=== PATIENT | male | born 2000 | race Caucasian/White ===

== ENCOUNTER 2025-01-14 00:53 | Emergency (ER) | payer MEDICAID, SELFPAY ==
--- NOTE | 2025-01-14 00:48 | ED_ITS ---
HPI - Psych General Chief Complaint: Anxiety Stated Complaint: anxiety crisis, possible panic attack, Autistic Source: patient Mode of arrival: ambulatory Limitations: no limitations History of Present Illness ED Provider: HPI Narrative: patient comes here with delusional thoughts history of anxiety in the past had a panic attack at work not taking any medication mother is concerned patient does not feel anything wrong Related Data Home Medications ?Medication ?Instructions ?Recorded ?Confirmed No Known Home Meds 01/14/25 01/14/25 Allergies Allergy/AdvReac Type Severity Reaction Status Date / Time No Known Allergies Allergy Verified 01/14/25 01:49 Review of Systems 2 Review of Systems: Yes all other systems are reviewed and are negative [facility] Social History Social History Advance Directives: No Advance Directives Information Provided: Yes Do you have a plan to hurt others: No Plan Physical Exam 2 Vital Signs: Vital Signs: Last Vital Signs Temp 97.9 F 01/14/25 01:34 Pulse 67 01/14/25 01:34 Resp 19 01/14/25 01:34 BP 136/60 01/14/25 01:34 Pulse Ox 98 01/14/25 01:34 O2 Del Method Room Air 01/14/25 01:34 BMI result Body Mass Index 23.9 Appearance: Alert. Oriented X3. No acute distress. unkept anxious Eyes: PERRLA, No Nystagmus ENT: Pharynx normal. Oral Mucosa moist Neck: Normal inspection. Neck supple. CVS: Normal heart rate and rhythm. Pulses normal. Respiratory: No respiratory distress. Equal air entry bilateral, no wheezing/rales/rhonchi Abdomen: Soft and nontender. Bowel sounds are present, no mass palpable, no CVA tenderness Skin: Skin warm and dry. Normal skin color. Normal skin turgor. Extremities: No lower extremity edema. No calf tenderness Neuro: Oriented X 3. No motor deficit. No sensory deficit.No cerebellar signs , cranial nerves II-XII intact Medical Decision Making Medical Decision Making [facility] Narrative: patient has acute anxiety refusing any treatment medications family aware seen by care team safe to go home follow up as outpatient Lab Data [facility] Lab Attestation statement: I reviewed the patient's lab results. 01/14/25 02:08 01/14/25 02:07 Labs: Lab Results 01/14/25 01/14/25 01/14/25 Range/Units 02:07 02:08 02:11 WBC 9.8 (4.8-10.8) X10*3/uL RBC 4.93 (4.60-5.80) X10*6/uL Hgb 14.9 (14.0-18.0) g/dl Hct 42.1 (42.0-52.0) % MCV 85.4 (80.0-98.0) fL MCH 30.2 (27.0-33.0) pg MCHC 35.4 (31.0-36.0) g/dl RDW 13.2 (11.0-16.0) % Plt Count 268 (160-400) X10*3/uL MPV 9.4 (9.4-12.4) fL Immature Gran % (Auto) 0.6 H (0.0-0.4) % Neut % (Auto) 79.4 H (45-73) % Lymph % (Auto) 11.1 L (20-40) % [place] % (Auto) 7.7 (2-11) % Eos % (Auto) 0.4 (0-4) % Baso % (Auto) 0.8 (0-2) % Lymph # (Auto) 1.1 L (1.2-4.9) X10*3/uL [place] # (Auto) 0.8 (0.1-1.2) X10*3/uL Eos # (Auto) 0.0 (0.0-0.4) X10*3/uL Baso # (Auto) 0.1 (0.0-0.2) X10*3/uL Abs Immat Gran (auto) 0.06 H (0.00-0.03) X10*3/uL Absolute Neuts (auto) 7.8 (2.0-8.3) x10*3/uL Absolute Nucleated RBC 0.000 (0.0-0.012) X10*3/uL Nucleated RBC % (auto) 0.0 (0.0-0.2) /100WBC Smear Tech's Comments VERIFIED Sodium 140 (135-145) mmol/L Potassium 3.4 (3.3-5.1) mmol/L Chloride 105 (96-108) mmol/L Carbon Dioxide 24 (22-29) mmol/L Anion Gap 14 (12-20) BUN 15 (9-16) mg/dL Creatinine 0.82 (0.5-1.4) mg/dL Estim Creat Clear Calc 155.0 Estimated GFR > 60 Random Glucose 113 (60-115) mg/dL Calcium 9.2 (8.4-10.2) mg/dL Total Bilirubin 0.7 (0.0-1.0) mg/dL AST 78 H (5-37) U/L ALT 75 H (0-40) U/L Alkaline Phosphatase 73 (39-117) U/L Total Protein 7.5 (6.5-8.0) g/dL Albumin 4.3 (3.5-5.0) g/dL Urine Color Urine Appearance Urine pH (5.0-9.0) Ur Specific [place] (1.005-1.025) Urine Protein (Neg-Trace) mg/dL Urine Glucose (UA) (Negative) mg/dL Urine Ketones (Negative) mg/dL Urine Blood (Negative) Urine Nitrite (Negative) Ur Leukocyte Esterase (Negative) Urine RBC (0-2) /HPF Urine WBC (0-5) /HPF Ur Squamous Epith Cells (0-2) /HPF Urine Bacteria (None Seen) Hyaline Casts (0-2) /LPF Salicylates < 5.0 L (15-30) mg/dL Urine Opiates Screen Not Detected (Not Detect) Ur Buprenorphine Scrn Not Detected (Not Detect) ng/mL Ur Oxycodone Screen Not Detected (Not Detect) ng/mL Urine Methadone Screen Not Detected (Not Detect) ng/mL Urine Fentanyl Screen Not Detected (Not Detect) Acetaminophen < 3 (<30) mcg/mL Ur Barbiturates Screen Not Detected (Not Detect) Ur Phencyclidine Scrn Not Detected (Not Detect) Ur Amphetamines Screen Not Detected (Not Detect) U Benzodiazepines Scrn Not Detected (Not Detect) Urine Cocaine Screen Not Detected (Not Detect) U Marijuana (THC) Screen POSITIVE H (Not Detect) Ethyl Alcohol < 10 mg/dL 01/14/25 Range/Units 02:12 WBC (4.8-10.8) X10*3/uL RBC (4.60-5.80) X10*6/uL Hgb (14.0-18.0) g/dl Hct (42.0-52.0) % MCV (80.0-98.0) fL MCH (27.0-33.0) pg MCHC (31.0-36.0) g/dl RDW (11.0-16.0) % Plt Count (160-400) X10*3/uL MPV (9.4-12.4) fL Immature Gran % (Auto) (0.0-0.4) % Neut % (Auto) (45-73) % Lymph % (Auto) (20-40) % [place] % (Auto) (2-11) % Eos % (Auto) (0-4) % Baso % (Auto) (0-2) % Lymph # (Auto) (1.2-4.9) X10*3/uL [place] # (Auto) (0.1-1.2) X10*3/uL Eos # (Auto) (0.0-0.4) X10*3/uL Baso # (Auto) (0.0-0.2) X10*3/uL Abs Immat Gran (auto) (0.00-0.03) X10*3/uL Absolute Neuts (auto) (2.0-8.3) x10*3/uL Absolute Nucleated RBC (0.0-0.012) X10*3/uL Nucleated RBC % (auto) (0.0-0.2) /100WBC Smear Tech's Comments Sodium (135-145) mmol/L Potassium (3.3-5.1) mmol/L Chloride (96-108) mmol/L Carbon Dioxide (22-29) mmol/L Anion Gap (12-20) BUN (9-16) mg/dL Creatinine (0.5-1.4) mg/dL Estim Creat Clear Calc Estimated GFR Random Glucose (60-115) mg/dL Calcium (8.4-10.2) mg/dL Total Bilirubin (0.0-1.0) mg/dL AST (5-37) U/L ALT (0-40) U/L Alkaline Phosphatase (39-117) U/L Total Protein (6.5-8.0) g/dL Albumin (3.5-5.0) g/dL Urine Color Yellow Urine Appearance Clear Urine pH 6.5 (5.0-9.0) Ur Specific [place] >= 1.030 H (1.005-1.025) Urine Protein 30 (1+) H (Neg-Trace) mg/dL Urine Glucose (UA) Negative (Negative) mg/dL Urine Ketones 15 (Negative) mg/dL Urine Blood Negative (Negative) Urine Nitrite Negative (Negative) Ur Leukocyte Esterase Negative (Negative) Urine RBC 0-2 (0-2) /HPF Urine WBC 0-5 (0-5) /HPF Ur Squamous Epith Cells 0-2 (0-2) /HPF Urine Bacteria None Seen (None Seen) Hyaline Casts 0-2 (0-2) /LPF Salicylates (15-30) mg/dL Urine Opiates Screen (Not Detect) Ur Buprenorphine Scrn (Not Detect) ng/mL Ur Oxycodone Screen (Not Detect) ng/mL Urine Methadone Screen (Not Detect) ng/mL Urine Fentanyl Screen (Not Detect) Acetaminophen (<30) mcg/mL Ur Barbiturates Screen (Not Detect) Ur Phencyclidine Scrn (Not Detect) Ur Amphetamines Screen (Not Detect) U Benzodiazepines Scrn (Not Detect) Urine Cocaine Screen (Not Detect) U Marijuana (THC) Screen (Not Detect) Ethyl Alcohol mg/dL Discharge Plan Discharge Clinical Impression: Acute anxiety, Panic disorder Patient Disposition: Home, Self-Care Instructions: Panic Disorder (ED), Anxiety (ED) Additional Instructions: follow up with psychiatrist as advised Prescriptions: No Action No Known Home Meds Referrals: El Castillo MD [Physician] - 1 week Print Language: Monegasque
--- OUTSIDE RECORDS SUMMARY | 2025-01-14 01:06 | XMS_ITS ---
Author Name [facility] Organization Unknown Care Team Organization Name Specialty Phone Email Start Date End Da te [employer] 06/12/2023 0 04/26/2024
--- OUTSIDE RECORDS SUMMARY | 2025-01-14 01:06 | XMS_ITS | Clinical Summary ---
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 Name Role Phone Unavailable Primary Care Provider Unavailabl e Allergies No known active allergies Medications amphetamine-dext roamphetamine XR 5 MG 24 hr capsule TK 1 C PO D 0 02/23/2018 Active buPROPion XL 150 MG 24 hr tablet 03/16/2018 Act yolis lamoTRIgine 5 MG chewable tablet chewable tablet CHEW 2 TS PO QD 0 02/23/2018 Active Active Problems Problem Noted Date Diagnosed Date Anxiety 03/10/2017 Autistic disorder 03/10/2017 Pectus excavatum 03/10/2017 Seasonal allergic rhinitis 03/10/2017 Febrile seizure 08/08/2011 Amblyopia 12/27/2010 ADHD (attention deficit hyperactivity disorder) 10/31/2009 Immunizations Immunization Administration Dates Next Due DTaP 5 05/26/2007, 5,06/15/2003,04/13,02/09/2003 H1N1 10/31/2009 HPV Vaccine 9 Valent 03/10/2017 Hep A, ped/adol 03/10/2017,05/11/2014 Hep B, ped/adol 10/12/2003,06/15/2003,2002 Hib (HbOC) 05/02/2004 Hib (PRP-T) 06/15/2003,04/13/2003,02/09/2003 IPV 05/26/2007, 4,04/13/2003,02/09 Influenza, injectable, quadr ivalent, preservative free 05/11/2014 Influenza, injectable, trivalent 06/08/2009,06/08,05/26/2007 MMR 12/15/2003 MMRV 05/26/2007 Meningococcal Conj (Menactra) MCV4P 05/11/2014 Pneumococcal Conjugate 06/15/2003,04/13/2003,12/2002 Tdap 05/11/2014 Varicella 12/15/2003 Family History Relation Name Status Comments Father Father: Pulmona ry embolism, Gout Maternal Grandfather Materna l grandfather: COPD, Diabetes mellitus Maternal Grandmother Materna l grandmother: Depression, bipolar depression, nervous b Mother Mother: Allergi c rhinitis, Seizure disorder, Endometriosis Other 1 Family history of SEIZURE, Family history of FACTOR 5 Other 2 Family history of SEIZURE, Family history of FACTOR 5 Paternal Grandmother Paterna l grandmother: Gout Social History Tobacco Use Types Packs/Day Years Used Date Smoking Tobacco: Never Smokeless Tobacco: Never Comments:Never smoker Sex and Gender Information Value Date Recorded Sex Assigned at Not on file Legal Sex Male 4:57 PM EDT Gender Identity Not on file Sexual Orientation Not on file Last Filed Vital Signs Vital Sign Reading Time Taken Comments Blood Pressure 108/70 03/17/2018 10:04 AM EDT Pulse 74 03/17/2018 10:04 AM EDT Temperature 36.6 ??C (97.8 ??F) 03/17/2018 1 0:04 AM EDT Respiratory Rate - - Oxygen Saturation - - Inhaled Oxygen Concentration - - Weight 77.5 kg (170 lb 12.8 oz) 018 10:04 AM EDT Height 181 cm (5' 11.25 ) 03/17/2018 10 :04 AM EDT Body Mass Index 23.65 03/17/2018 10:04 AM EDT Plan of Treatment Health Maintenance Due Date Last Done Comments HPV Vaccines (2 - Male 2-dose series) 09/10/2017 03/10/2017 Men B Vaccine (1 of 2 - Standard) 2018 Influenza Vaccines (#1) 2024 05/11/20 14, 06/08/2009, 06/22/2008, Additional history exists COVID-19 Vaccine ( - season) 2024 DTaP,Tdap,and Td Vaccines (7 - Td or Tdap) 05/11/2024 05/11/2014, 05/26/2007, 01/09/2005, Additional history exists Pneumococcal Vaccine Aged Out 06/15/2003, 04/13/2003, 02/09/2003 No longer eligible based on patient's age to complete this topic Hepatitis B Vaccines Completed 10/12/2003, 06/15/2003, 2002 HIB Vaccines Completed 05/02/2004, 04/2003, 04/13/2003, Additional history exists IPV Vaccines Completed 05/26/2007, 12/2003, 04/13/2003, Additional history exists MMR Vaccines Completed 05/26/2007, 12/15/2003 Varicella Vaccines Completed 05/26/2007, 12/15/2003 Meningococcal Vaccine Aged Out 05/11/2014 No kim sheryl eligible based on patient's age to complete this topic Hepatitis A Vaccines Completed 03/10/2017, 05/11/20 14
--- OUTSIDE RECORDS SUMMARY | 2025-01-14 01:06 | XMS_ITS | Encounter Summary ---
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 Role Phone Unavailable Primary Care Provider Unavailabl e Encounter Details Date Type Department Care Team (Late st Contact Info) Description 04/24/2017 Conversion Encounter [facility] - [address] [id number] Social History Tobacco Use Types Packs/Day Years Used Date Smoking Tobacco: Never Comments:Never smoker Sex and Gender Information Value Date Recorded Sex Assigned at Not on file Legal Sex Male 4:57 PM EDT Gender Identity Not on file Sexual Orientation Not on file documented as of this encounter Plan of Treatment Not on file documented as of this encounter Visit Diagnoses Not on filedocumented in this encounter
--- OUTSIDE RECORDS SUMMARY | 2025-01-14 01:07 | XMS_ITS | Data Portability ---
Author Organization [facility], [address] Address [address] [place] [address] Assessment No assessment recorded. Plan of Treatment Reminders Order Date Submit Date Provider Last Modified By Organization Details Last Modified Time Details Appointments None recorded. Lab rapid SARS CoV 2 Ag, QL IA, respiratory specimen 2022 023 [address], [address] [place] [address], [address], 3 12:01:55 rapid flu (A+B) 2022 023 [facility] _[facility], [address] [place] [address], [address], 3 12:01:54 rapid SARS CoV 2 Ag, QL IA, respiratory specimen 2022 023 [facility] [address], [address] [place] [address], [address], 3 17:49:29 Referral None recorded. Procedures None recorded. Surgeries None recorded. Imaging None recorded. Medication Orders prednisone 20 mg tablet 2022 023 [facility]/Pharmacy #[id number], [address] [facility] [place], [address], 3 12:01:58 fexofenadin e-pseudoeph edrine ER 180 mg-240 mg tablet,ext. release 24 hr 2022 023 [id number], [address] [place], [address], 3 12:01:58 ondansetron 8 mg disintegrat ing tablet 2022 023 [id number] [address] [place], [address], 3 12:01:58 prednisone 20 mg tablet 2022 023 [facility] [address] [place], [address], 3 11:18:35 albuterol sulfate HFA 90 mcg/actuati on aerosol inhaler 2022 023 [facility] [address] [place], [address], 3 11:18:29 benzonatate 200 mg capsule 2022 023 [facility] [address] [place], [address], 3 11:18:32 Allergy Relief (fluticason e) 50 mcg/actuati on nasal spray,suspe nsion 2022 023 [facility] [address] [place], [address], 3 11:18:27 Patient TargetsNo targets recorded. Patient Instructions Encounter Date Encounter Id Patient Instructions Last Modified By Organization Details Last Modified Time 10/19/2022 [id number] Patient instruct ed on worsening signs and symptoms that would require further evaluation by ED or PCP such as fever of 101.0 or greater, congestion accompanied with coughing, vomiting, diarrhea, abdominal pain, decreased oral intake, lethargy, or other new symptom(s) experienced not discussed during this visit. Use humidifier and ensure good hydration. If you experience new concerning symptoms, shortness of breath, respiratory distress, or chest pain go to the ER. Use the medications prescribed. May use Decongestants if tolerated and no history of elevated blood pressure or Diabetes. Use saline nasal saline and Flonase daily for1 week. You may use tylenol for pain/fever. Do not take prednisone with Ibuprofen. Get some extra rest. When should you call for help? Call anytime you think you may need emergency care. For example, call if: You have severe trouble breathing. Call your doctor now or seek immediate medical care if: You have new or worse trouble breathing. You cough up dark brown or bloody mucus (sputum). You have a new or higher fever. You have a new rash. Watch closely for changes in your health, and be sure to contact your doctor if: You cough more deeply or more often, especially if you notice more mucus or a change in the color of your mucus. You are not getting better as expected. [email or web address] Not available 10/19/2022 17:49:27 11/03/2022 [id number] nausea and vomiting: care instructions [email or web address] Not available 11/03/2022 12:01:54 Try small amount s of clear liquids frequently. If vomiting occurs, wait 30-60 minutes before trying clear liquids again. Once you are able to tolerate clear liquids for at least 6 hours without vomiting, you can advance to a soft diet consisting of foods such as bananas, rice, applesauce, toast, crackers, and other foods rich in carbohydrates and low on fats and spices. If the diet is tolerated for 12-24 hours, you can slowly add other foods to your diet. If vomiting occurs, you should go back to clear liquids only and work your way back to a normal diet as outlined above. If much worse, you should seek treatment immediately. Not available 11/03/2022 11:15:13 Sinusitis is an infection of the lining of the sinus cavities in your head. Sinusitis often follows a cold. It causes pain and pressure in your head and face. In most cases, sinusitis gets better on its own in 1 to 2 weeks. But some mild symptoms may last for several weeks. Sometimes antibiotics are needed. if you are having problems. It's also a good idea to know your test results and keep a list of the medicines you take. How can you care for yourself at home? Take an ckoy-nom-ffqtagi pain medicine. Avoid Ibuprofen, Aleve and Aspirin if . If the doctor prescribed antibiotics, take them as directed. Do not stop taking them just because you feel better. You need to take the full course of antibiotics. Be careful when taking gvrc-emi-yxofgyc cold or influenza (flu) medicines and Tylenol at the same time. Many of these medicines have acetaminophen, which is Tylenol. Read the labels to make sure that you are not taking more than the recommended dose. Too much acetaminophen (Tylenol) can be harmful. Breathe warm, moist air from a steamy shower, a hot bath, or a sink filled with hot water. Avoid cold, dry air. Using a humidifier in your home may help. Follow the directions for cleaning the machine. Use saline (saltwater) nasal washes. This can help keep your nasal passages open and wash out mucus and bacteria. You can buy saline nose drops at a grocery store or drugstore. Or you can make your own at home by adding 1 teaspoon (5 millilitres) of salt and 1 teaspoon (5 millilitres) of baking soda to 2 cups (500 mL) of distilled water. If you make your own, fill a bulb syringe with the solution, insert the tip into your nostril, and squeeze gently. Blow your nose. Put a hot, wet towel or a warm gel pack on your face 3 or 4 times a day for 5 to 10 minutes each time. Try a decongestant nasal spray like oxymetazoline (Drixoral). Do not use it for more than 3 days in a row. Using it for more than 3 days can make your congestion worse. [email or web address] Not available 11/03/2022 12:02:09 Reason for Referral None Reported. Results Created Date Observation Date Name Description Value Unit Range Abnormal Flag Note LastModifiedBy Organization Detail LastModifiedTime 10/19/19 23 10/19/2022 rapid SARS CoV 2 Ag, QL IA, respi rator y speci men Unknown Analyte Normal =Negat yolis Not Available [address] [place] [address], [place], [address], 10/19/2022 17:24:20 10/19/19 23 10/19/2022 rapid SARS CoV 2 Ag, QL IA, respi rator y speci men Unknown Analyte negati ve Not Available tin [address], [place], [address], 10/19/2022 17:24:20 11/03/19 23 11/03/2022 rapid SARS CoV 2 Ag, QL IA, respi rator y speci men Unknown Analyte Normal =Negat yolis Not Available [address], [place], [address], 11/03/2022 11:19:57 11/03/19 23 11/03/2022 rapid SARS CoV 2 Ag, QL IA, respi rator y speci men Unknown Analyte negati ve Not Available [address], [place], [address], 11/03/2022 11:19:57 11/03/19 23 11/03/2022 rapid flu (A+B) Unknown Analyte Normal = Negati ve Not Available [address], [place], [place], [address], 11/03/2022 11:19:49 11/03/19 23 11/03/2022 rapid flu (A+B) Unknown Analyte Normal = Negati ve Not Available [address] [place] [address], [place], [address], 11/03/2022 11:19:49 11/03/19 23 11/03/2022 rapid flu (A+B) Unknown Analyte negati ve Not Available [address], [place], [address], 11/03/2022 11:19:49 11/03/19 23 11/03/2022 rapid flu (A+B) Unknown Analyte negati ve Not Available [address] [place], [address], 11/03/2022 11:19:49 Result Notes None recorded. Problems No Known Problems Medical Equipment None Reported. Allergies No known drug allergies Medications Name Sig Start Date Stop Date Status Note LastModified by Organization Details LastModified Time prednisone 20 mg tablet Take 2 tablets every day by oral route in the morning for 3 days. 2022 active Not Available Not Available Not Avai lable ondansetron 8 mg disintegrat ing tablet Place 1 tablet 3 times a day by transling ual route as needed for 3 days. 2022 active Not Available Not Available Not Avai lable albuterol sulfate HFA 90 mcg/actuati on aerosol inhaler Inhale 2 puffs every 4-6 hours by inhalatio n route as directed for 10 days. 11/03 completed Not Available Not Available Not Available fexofenadin e-pseudoeph edrine ER 180 mg-240 mg tablet,ext. release 24 hr Take 1 tablet every day by oral route in the morning for 10 days. 2022 active Not Available Not Available Not Avai lable Vitals Date Recorded Body height Body mass index (BMI) [Percentile] Per age and sex Body mass index (BMI) Body weight Pain severity - 0-10 verbal numeric rating [Score] - Reported Oxygen saturation Oxygen saturation in Arterial blood by Pulse oximetry Heart rate Respiratory rate Body temperature Systolic blood pressure Diastolic blood pressure Provider Name and Address Organization Details Last Updated DateTime 3 187.96 cm 95 % 30.8 kg/m2 754593. 17 g 5 98 % 98 % 87 /min 20 /min 98.1 [degF] 124 mm[Hg] 78 mm[Hg] JENIFFER GILLESPIE - [facility] 3 17:20:19 Date Recorded Body height Body mass index (BMI) [Percentile] Per age and sex Body mass index (BMI) Body weight Pain severity - 0-10 verbal numeric rating [Score] - Reported Oxygen saturation Oxygen saturation in Arterial blood by Pulse oximetry Heart rate Respiratory rate Body temperature Systolic blood pressure Diastolic blood pressure Provider Name and Address Organization Details Last Updated DateTime 3 187.96 cm 96 % 31.5 kg/m2 872737. 13 g 0 97 % 97 % 81 /min 16 /min 98 [degF] 123 mm[Hg] 63 mm[Hg] ROHINI MITCHELL PA - [facility] 11:21:36 Social History Question Answer Notes LastModified by Organizat ion Details LastModified Time Tobacco Smoking Status Never Smoker JENIFFER ANDERSON sultana PA Amanda [facility] 10/19/2022 17:24:12 What Is Your Level Of Alcohol Consumption? None [email or web address] Information not available 10/19/2022 Are You Currently Employed? Yes Information not available 11/03/2022 Do You Use Any Illicit Or Recreational Drugs? No [email or web address] Information not available 10/19/2022 Have You Recently Traveled Abroad? No [email or web address] Information not available 10/19/2022 Are You Currently In School? Yes Information not available 11/03/2022 Do You Or Have You Ever Used Any Other Forms Of Tobacco Or Nicotine? No [email or web address] Information not available 10/19/2022 Sex: Unknown Functional Status None recorded. Mental Status None recorded. Family History Relationship Description Onset Age of this Age Resolved Age Notes LastModified by Organization Details LastModified Time Father No current problems or disability [email or web address] Not available 10/19 17:23:32 Mother No current problems or disability [email or web address] Not available 10/19 17:23:32 Medical History No medical history recorded. Immunizations Vaccine Type Date Status Note Provider Nam e and Address Organization Details Recorded Time HPV9 09/13/2022 completed ROHINI weinberg PA - [facility] 11/03/2022 11:17:57 HPV9 03/10/2017 completed ROHINI weinberg PA - [facility] 11/03/2022 11:17:57 Hep A, ped/adol, 2 dose 03/10/2017 completed ROHINI weinberg PA - [facility] 11/03/2022 11:17:57 Past Encounters Encounter ID Performer Location Encounter Start Date Encounter Closed Date Diagnosis/Indication Diagnosis SNOMED-CT Code Diagnosis ICD10 Code Diagnosis Note [id number] [facility] [address] 10/19/2019 18:33:02 10/19/2019 19:50:49 [id number] Jared Slaughter NP [address] [facility] [place] [address] 10/19/2022 17:12:20 10/19/2022 17:51:52 Acute bronchitis 21009979 J20.9 Exposure t o SARS-CoV-2 694168423 Z20.822 [id number] Jared Slaughter NP [address] [facility] [place] [address] 11/03/2022 10:01:53 11/03/2022 12:03:42 Exposure to SARS-CoV-2 585756167 Z20.822 Nausea, vo miting and diarrhea 0724196 R11.2 Acute sinusitis 91933347 J01.90 Health Concerns Section Related Observation LastModified by Organization Detai ls LastModified Time None Recorded Concern Status LastModified by Organization Details LastModified Time None Recorded Advance Directives Directive None Recorded Payers Insurance Date Sequence Insurance Name Policy Number Policy Ballesteros Covered Member ID Ballesteros Member ID Guarantor Name 11/03/2022 1 [facility] (MEDICAID HMO) [id number] Chandler Stark [id number] Poly Stark Notes Date Note Type Note Provider Name and Address Organization Details Recorded Time 10/19/2022 text/html CongestionReport ed bypatient.Notes:chest congestion, nasal congestion with post nasal drip x 3 days. denies any fever or fever with chills. no SOB or respiratory distress. POX= 98 %Ear Pain Brief HPIReported bypatient.Quality:no itching; no discharge from the ears; no burning Severity:no fever; able to perform daily activities; no interference with sleep Context:no recent URI; no recent trauma; no recent ear infection; no recent swimming; no immunocompromise; no dental problems; no recent airplane travel; no scuba diving; non-smoker Associated Symptoms:no cough; no jaw popping or clicking; No decreased appetite; no discharge from ear; no nasal congestion; no nasal discharge; no hearing loss; no sense of fullness; no sore throat; no dental pain; no jaw pain; no tinnitus; no decreased hearing; no muffled hearing Jared Slaughter NP [address] [place] [place], [address], [facility] 10/24/2022 08:41:07 11/03/2022 text/html Nausea UCReporte d bypatient.source of patient informationpatient; Patient arrived at Urgent Care ambulatory Locationdiffuse Quality:worsening; intermittent Severity:moderate Durationcannot identify Onset/Timing:abrupt onset; still present;worse in the morning Contextno drug/alcohol abuse; no one else with similar symptoms; no recent camping; no recent picnic; no possible food sources; no well water; no foreign travel Alleviating factors:Pepto-Bismol Aggravating factors:eating Associated Symptoms:no abdominal pain; no excess gas; no fever; no cholesterol issues; no diarrhea; no vomiting; no dry heaves; no heartburn; no fatigue; no weakness; no weight loss; no weight gain; no muscle aches; no muscle weakness; no nutrient deficiency; no change in bowel/bladder habits Jared Slaughter NP [address] [place] [place], [address], [facility] 11/03/2022 12:02:36
[2025-01-14 01:34] VITALS: BP 110/70; BP 136/60; PULSE 54; PULSE 67; RESP 19; TEMP 36.6; O2SAT 98; O2SAT 99; BMI 23.9
[2025-01-14 02:21] LABS: Appearance Urine Clear; Color Urine Yellow; Glucose Urine UA Negative (Negative); Leukocyte Esterase Urine Negative (Negative); Nitrite Urine Negative (Negative); PH 6.5 (5.0-9.0); Specific Gravity - Urine >= 1.030 (1.005-1.025); UMIC TRIGGER UA YES; Urine Blood Negative (Negative); Urine Ketones 15 mg/dL (Negative); Urine Protein 30 (1+) mg/dL (Neg-Trace)
[2025-01-14 02:23] LABS: Eosinophils Percent Auto 0.4 % (0-4); Imm Gran Abs Auto 0.06 X10*3/uL (0.00-0.03); Imm Gran Pct Auto 0.6 % (0.0-0.4); MANUAL DIFF FLAG SCAN; PLT CLUMP 1; Red Cell Distribution Width 13.2 % (11.0-16.0); SCAN SMEAR FLAG 1
[2025-01-14 02:25] LABS: Basophils Absolute Auto 0.1 X10*3/uL (0.0-0.2); Basophils Percent Auto 0.8 % (0-2); Hematocrit 42.1 % (42.0-52.0); Hemoglobin 14.9 g/dl (14.0-18.0); Lymphocytes Absolute Auto 1.1 X10*3/uL (1.2-4.9); Lymphocytes Percent Auto 11.1 % (20-40); Mean Corpuscular HGB Conc 35.4 g/dl (31.0-36.0); Mean Corpuscular Hemoglobin 30.2 pg (27.0-33.0); Mean Corpuscular Volume 85.4 fL (80.0-98.0); Mean Platelet Volume 9.4 fL (9.4-12.4); Monocytes Absolute Auto 0.8 X10*3/uL (0.1-1.2); Monocytes Percent Auto 7.7 % (2-11); Neutrophils Absolute Auto 7.8 x10*3/uL (2.0-8.3); Neutrophils Percent Auto 79.4 % (45-73); Red Blood Count 4.93 X10*6/uL (4.60-5.80)
[2025-01-14 02:26] LABS: White Blood Count 9.8 X10*3/uL (4.8-10.8)
[2025-01-14 02:27] LABS: Platelet Count 268 X10*3/uL (160-400)
[2025-01-14 02:32] LABS: Bacteria Urine None Seen (None Seen); Hyaline Casts Urine 0-2 /LPF (0-2); RBC Urine 0-2 /HPF (0-2); Squamous Epithelial Cell Urine 0-2 /HPF (0-2); WBC Urine 0-5 /HPF (0-5)
[2025-01-14 02:44] LABS: Amphetamine Screen Urine Not Detected (Not Detect); Barbiturates, Urine Not Detected (Not Detect); Benzodiazepines Screen Urine Not Detected (Not Detect); Buprenorphine Scr Not Detected (Not Detect); Cannabinoid Screen Urine POSITIVE (Not Detect); Cocaine Screen Urine Not Detected (Not Detect); Fentanyl, urine Not Detected (Not Detect); Methadone Screen, Urine Not Detected (Not Detect); Opiate Screen Urine Not Detected (Not Detect); Oxycodone Screen Urine Not Detected (Not Detect); Phencyclidine Screen Urine Not Detected (Not Detect)
[2025-01-14 02:47] LABS: Alanine Aminotransferase 75 U/L (0-40); Albumin Level 4.3 g/dL (3.5-5.0); Anion Gap 14 (12-20); Aspartate Amino Transferase 78 U/L (5-37); Bilirubin Total 0.7 mg/dL (0.0-1.0); Blood Urea Nitrogen 15 mg/dL (9-16); Calcium 9.2 mg/dL (8.4-10.2); Carbon Dioxide 24 mmol/L (22-29); Chloride 105 mmol/L (96-108); Estimated Glomerular Filt Rate > 60; Ethanol < 10 mg/dL; Glucose Random 113 mg/dL (60-115); Potassium 3.4 mmol/L (3.3-5.1); Sodium 140 mmol/L (135-145); Total Protein 7.5 g/dL (6.5-8.0)
[2025-01-14 02:50] LABS: SLIDE REVIEW VERIFIED
[2025-01-14 02:59] LABS: Alkaline Phosphatase 73 U/L (39-117)
[2025-01-14 03:18] LABS: Acetaminophen LAB < 3 mcg/mL (<30); Salicylate < 5.0 mg/dL (15-30)
--- NOTE | 2025-01-14 05:14 | PC.NURSE ---
five minutes after care staff Liyah had come and talked to client, client claims he forgot agreeing to try and stay and get help for recent challenges at home. when t/w tried to summarize about the phone call to collaterals, client expressed that perhaps the peer almas was trying to protect me and not that client and almas peer have a professional relationship. patient seemed to want to recant agrrement to stay i dont want to be held against my will b/c patient was seeming to escalate in volume, t/w told client i would try and have her return and also nothing was going to happen in the next few hours, that his mother was going to call his job and he should try and get rest.
--- NOTE | 2025-01-14 05:26 | PC.NURSE ---
client came out to ask for an uber, t/w told him the clinician would return and discuss with him, and that the previous interaction was the opposite of what he had just presented, and therefore the clinician would come and represnet information to provider again.
[2025-01-14 06:21] VITALS: BP 120/66; PULSE 55; RESP 18; TEMP 37; O2SAT 98
== END 2025-01-14 06:38 | disposition home or self-care (01) ==
PROVIDERS: Emergency Provider Internal Medicine
DX: F41.9 Anxiety disorder, unspecified (principal); F41.0 Panic disorder [episodic paroxysmal anxiety]; F22 Delusional disorders
CPT/HCPCS: 36415; 80053; 80143; 80179; 80307; 81001; 85025; 99284; S9485

== ENCOUNTER 2025-01-16 04:53 | Inpatient (IN) | payer MEDICAID, SELFPAY ==
--- OUTSIDE RECORDS SUMMARY | 2025-01-16 05:00 | XMS_ITS | Encounter Summary ---
Author Organization [facility] Address [address] [place] [address] Phone Care Team Providers Care Convention Services Manager Name Role Phone Unavailable Primary Care Provider Unavailabl e Encounter Details Date Type Department Care Team (Late st Contact Info) Description 04/24/2017 Conversion Encounter [facility] - [address] [address] Social History Tobacco Use Types Packs/Day Years [...]
--- OUTSIDE RECORDS SUMMARY | 2025-01-16 05:00 | XMS_ITS | Clinical Summary ---
Author Organization [facility] Address [address] [place] [address] Phone Care Team Providers Care Oven Attendant Name Role Phone Unavailable Primary Care Provider [...]
--- OUTSIDE RECORDS SUMMARY | 2025-01-16 05:00 | XMS_ITS | Data Portability ---
Author Organization [facility], [address] Address [address] [place] [address] Assessment No assessment recorded. Plan of Treatment Reminders Order Date Submit Date Provider Last Modified By Organization Details Last Modified Time Details Appointments None recorded. Lab rapid SARS CoV 2 Ag, QL IA, respiratory specimen 2022 023 gretaHaley 20995_[facility], [address] [place] [address], [address], 3 12:01:55 rapid flu (A+B) 2022 023 [facility] _[facility], [address] [place] [address], [address], 3 12:01:54 rapid SARS CoV 2 Ag, QL IA, respiratory specimen 2022 023 [facility] 2099[facility], [address] [place] [address], [address], 3 17:49:29 Referral None recorded. Procedures None recorded. Surgeries None recorded. Imaging None recorded. Medication Orders prednisone 20 mg tablet 2022 023 [facility]/Pharmacy #[id number], [address] [facility] [place], [address], 3 12:01:58 fexofenadin e-pseudoeph edrine ER 180 mg-240 mg tablet,ext. release 24 hr 2022 023 [facility], [address] [place], [address], 3 12:01:58 ondansetron 8 mg disintegrat ing tablet 2022 023 [facility] [address] [place], [address], 3 12:01:58 prednisone 20 mg tablet 2022 023 [facility] [address] [place], [address], 3 11:18:35 albuterol sulfate HFA 90 mcg/actuati on aerosol inhaler 2022 023 [facility] [address] [place], [address], 3 11:18:29 benzonatate 200 mg capsule 2022 023 [facility] [address] [place], [address], 3 11:18:32 Allergy Relief (fluticason e) 50 mcg/actuati on nasal spray,suspe nsion 2022 023 [facility] [address] [place], [address], 3 11:18:27 Patient TargetsNo targets recorded. Patient Instructions Encounter Date Encounter Id Patient Instructions Last Modified By Organization Details Last Modified Time 10/19/2022 [id number] Patient instruct ed on worsening signs and [...] expected. [email or web address] Not available 10/19/2022 17:49:27 11/03/2022 [id number] nausea and vomiting: care instructions [email or web address] Not [...] care for yourself at home? Take an rhaq-zvz-bnqpoyw pain medicine. Avoid Ibuprofen, Aleve and Aspirin if . If the doctor prescribed antibiotics, take them as directed. Do not stop taking them just because you feel better. You need to take the full course of antibiotics. Be careful when taking srla-wje-hptcezy cold or influenza (flu) medicines and Tylenol [...] =Negat yolis Not Available [address] [address] [address] [place] [address], [place], [address], 10/19/2022 17:24:20 10/19/19 23 10/19/2022 rapid SARS CoV 2 Ag, QL IA, respi rator y speci men Unknown Analyte negati ve Not Available tin [address], [place], [address], 10/19/2022 17:24:20 11/03/19 23 11/03/2022 rapid SARS CoV 2 Ag, QL IA, respi rator y speci men Unknown Analyte Normal =Negat yolis Not Available [address], [place], [address], 11/03/2022 11:19:57 11/03/19 23 11/03/2022 rapid SARS CoV 2 Ag, QL IA, respi rator y speci men Unknown Analyte negati ve Not Available [address], [place], [address], 11/03/2022 11:19:57 11/03/19 23 11/03/2022 rapid flu (A+B) Unknown Analyte Normal = Negati ve Not Available [address], [place], [place], [address], 11/03/2022 11:19:49 11/03/19 23 11/03/2022 rapid flu (A+B) Unknown Analyte Normal = Negati ve Not Available [address] [place] [address], [place], [address], 11/03/2022 11:19:49 11/03/19 23 11/03/2022 rapid flu (A+B) Unknown Analyte negati ve Not Available [address], [place], [address], 11/03/2022 11:19:49 11/03/19 23 11/03/2022 rapid flu (A+B) Unknown Analyte negati ve Not Available [address] [place], [address], 11/03/2022 11:19:49 Result Notes None recorded. Problems [...] 3 187.96 cm 95 % 30.8 kg/m2 207960. 17 g 5 98 % 98 % [...] 3 187.96 cm 96 % 31.5 kg/m2 158916. 13 g 0 97 % 97 % 81 /min 16 /min 98 [degF] 123 mm[Hg] 63 mm[Hg] ROHINI MITCHELL PA - [facility] 11:21:36 Social History Question Answer Notes LastModified by Organizat ion Details LastModified Time Tobacco Smoking Status Never Smoker JENIFFER ANDERSON sultana PA Amanda [facility] 10/19/2022 17:24:12 What Is Your Level Of Alcohol Consumption? None [email or web address] Information not available 10/19/2022 Are You Currently Employed? Yes Information not available 11/03/2022 Do You Use Any Illicit Or Recreational Drugs? No [email or web address] Information not available 10/19/2022 Have You Recently Traveled Abroad? No [email or web address] Information not available 10/19/2022 Are You Currently In School? Yes Information not available 11/03/2022 Do You Or Have You Ever Used Any Other Forms Of Tobacco Or Nicotine? No [email or web address] Information not available 10/19/2022 Sex: Unknown Functional Status None recorded. Mental Status None recorded. Family History Relationship Description Onset Age of this Age Resolved Age Notes LastModified by Organization Details LastModified Time Father No current problems or disability Not available 10/19 17:23:32 Mother No current problems or disability [email or web address] Not available 10/19 17:23:32 Medical History No [...] SNOMED-CT Code Diagnosis ICD10 Code Diagnosis Note [id number] [facility] [address] 10/19/2019 18:33:02 10/19/2019 19:50:49 [id number] Jared Slaughter NP [address] [facility] [place] [address] 10/19/2022 17:12:20 10/19/2022 17:51:52 Acute bronchitis 34901055 J20.9 Exposure t o SARS-CoV-2 357754226 Z20.822 [id number] Jared Slaughter NP [address] [facility] [place] [address] 11/03/2022 10:01:53 11/03/2022 12:03:42 Exposure to SARS-CoV-2 276116429 Z20.822 Nausea, vo miting and diarrhea 2695585 R11.2 Acute sinusitis 74405710 J01.90 Health Concerns Section Related Observation LastModified by Organization Detai ls LastModified Time None Recorded Concern Status LastModified by Organization Details LastModified Time None Recorded Advance Directives Directive None Recorded Payers Insurance Date Sequence Insurance Name Policy Number Policy Ballesteros Covered Member ID Ballesteros Member ID Guarantor Name 11/03/2022 1 [facility] (MEDICAID HMO) [id number] Chandler Stark [id number] Poly Stark Notes Date Note Type Note [...] Jared Slaughter NP [address] [place] [place], [address], [facility] 10/24/2022 08:41:07 11/03/2022 text/html Nausea UCReporte [...] Jared Slaughter NP [address] [place] [place], [address], [facility] 11/03/2022 12:02:36
--- NOTE | 2025-01-16 05:14 | MHC.EDTECH ---
Patient was biba ,vitals taken ,Patient was cell changer into green gown ,all Patient belonging are locked up in pod locker #4 ,Patient calm and cooperative ,RN Nova is aware that Patient had an old abrasion size of a nickel on top of his left shoulder.
[2025-01-16 05:51] VITALS: BP 130/90; BP 150/95; PULSE 45; PULSE 50; RESP 16; TEMP 36.8; O2SAT 100; O2SAT 97; BMI 21.2
[2025-01-16] MEDS: diphenhydrAMINE HCL 25 MG CAPSULE 50 MG PO (06:08)
--- NOTE | 2025-01-16 06:14 | PC.NURSE ---
patient expresses he has remorse for potentially hurting people and he thinks his friends just want him to be a real person t/w told him to try to not beat himself up.
[2025-01-16 07:03] LABS: Amphetamine Screen Urine Not Detected (Not Detect); Barbiturates, Urine Not Detected (Not Detect); Benzodiazepines Screen Urine Not Detected (Not Detect); Buprenorphine Scr Not Detected (Not Detect); Cannabinoid Screen Urine POSITIVE (Not Detect); Cocaine Screen Urine Not Detected (Not Detect); Fentanyl, urine Not Detected (Not Detect); Methadone Screen, Urine Not Detected (Not Detect); Opiate Screen Urine Not Detected (Not Detect); Oxycodone Screen Urine Not Detected (Not Detect); Phencyclidine Screen Urine Not Detected (Not Detect)
--- NOTE | 2025-01-16 07:30 | PC.NURSE ---
ASSUMED CARE OF PT AT 0645. PT CONTINUE TO COME OUT OF ROOM FREQUENTLY TO APOLOGIZE FOR HIS ACTIONS . HE IS CURRENTLY ON THE PHONE WITH HIS MOM. NO APPARENT DISTRESS. AWAITING CARE TEAM ASSESSMENT
[2025-01-16 08:00] LABS: MANUAL DIFF FLAG NO
[2025-01-16 08:01] LABS: Basophils Absolute Auto 0.1 X10*3/uL (0.0-0.2); Basophils Percent Auto 0.9 % (0-2); Eosinophils Absolute Auto 0.1 X10*3/uL (0.0-0.4); Eosinophils Percent Auto 0.8 % (0-4); Hematocrit 48.5 % (42.0-52.0); Hemoglobin 16.3 g/dl (14.0-18.0); Imm Gran Abs Auto 0.03 X10*3/uL (0.00-0.03); Imm Gran Pct Auto 0.3 % (0.0-0.4); Lymphocytes Absolute Auto 1.8 X10*3/uL (1.2-4.9); Lymphocytes Percent Auto 20.3 % (20-40); Mean Corpuscular HGB Conc 33.6 g/dl (31.0-36.0); Mean Corpuscular Hemoglobin 29.8 pg (27.0-33.0); Mean Corpuscular Volume 88.7 fL (80.0-98.0); Mean Platelet Volume 8.8 fL (9.4-12.4); Monocytes Absolute Auto 0.5 X10*3/uL (0.1-1.2); Monocytes Percent Auto 5.5 % (2-11); Neutrophils Absolute Auto 6.2 x10*3/uL (2.0-8.3); Neutrophils Percent Auto 72.2 % (45-73); Platelet Count 382 X10*3/uL (160-400); Red Blood Count 5.47 X10*6/uL (4.60-5.80); Red Cell Distribution Width 13.1 % (11.0-16.0); White Blood Count 8.6 X10*3/uL (4.8-10.8)
[2025-01-16 08:19] LABS: Acetaminophen LAB < 3 mcg/mL (<30); Alanine Aminotransferase 68 U/L (0-40); Albumin Level 4.5 g/dL (3.5-5.0); Alkaline Phosphatase 81 U/L (39-117); Anion Gap 13 (12-20); Aspartate Amino Transferase 51 U/L (5-37); Bilirubin Total 0.6 mg/dL (0.0-1.0); Blood Urea Nitrogen 13 mg/dL (9-16); Calcium 9.5 mg/dL (8.4-10.2); Carbon Dioxide 27 mmol/L (22-29); Chloride 104 mmol/L (96-108); Creatinine Clr Calc Pharmacy 155.2; Estimated Glomerular Filt Rate > 60; Ethanol < 10 mg/dL; Glucose Random 106 mg/dL (60-115); Potassium 3.8 mmol/L (3.3-5.1); Salicylate < 5.0 mg/dL (15-30); Sodium 140 mmol/L (135-145); Total Protein 7.7 g/dL (6.5-8.0)
--- NOTE | 2025-01-16 09:16 | ED.PSYCH ---
HPI - Psych General Chief Complaint: Psychiatric Symptoms Stated Complaint: SI NO PLANS Time Seen by Provider: 01/16/25 07:07 History of Present Illness HPI Narrative: patient is a 24-year-old male sleep deprived. Fixated on his life and relationship issues patient Got section to be evaluated. Patient stated that he had difficulty coping. He wants a therapist. He has a plan that wanting to hurt himself on January 23. There is no specif Related Data Home Medications ?Medication ?Instructions ?Recorded ?Confirmed No Known Home Meds 01/14/25 01/16/25 Allergies Allergy/AdvReac Type Severity Reaction Status Date / Time ondansetron [From Zofran] AdvReac Anxiety Verified 01/16/25 05:59 Review of Systems Review of Systems: Yes all other systems are reviewed and are negative [facility] Past Medical History Attestation statement: The following information was validated with the patient. Social History Social History Smoked in Last 30 Days: No Use of substances other than those prescribed or required for medical reasons: No Advance Directives: No Do you have a plan to hurt others: No Plan Physical Exam Vital Signs: Vital Signs: Last Vital Signs Temp 97.9 F 01/18/25 08:30 Pulse 63 01/18/25 08:30 Resp 16 01/18/25 08:30 BP 129/63 01/18/25 08:30 Pulse Ox 99 01/18/25 08:30 O2 Del Method Room Air 01/18/25 08:30 BMI result Body Mass Index 21.2 Appearance: Alert. Oriented X3. No acute distress. Eyes: Pupils equal, round and reactive to light. ENT: Pharynx normal. Neck: Normal inspection. Neck supple. No lymph nodes noted. No crepitus CVS: Normal heart rate and rhythm. Pulses normal. Normal S1 and S2 Respiratory: No respiratory distress. Breath sounds normal. No Wheezing. No rales Abdomen: Soft and nontender. No rigidity. No distention. good BS x4 Skin: Skin warm and dry. Normal skin color. Normal skin turgor. Extremities: No lower extremity edema. Neurovascular intact to all extremities. No Lacerations. No Rash Neuro: Oriented X 3. No motor deficit. No sensory deficit. Moving all extermities. No slurred speech . Cranial nerve intact Course Reevaluation(s) Reevaluation #1: Time: 09:30 Date: 01/18/25 Provider: Zheng Huerta MD Patient in physician observation for psychiatric evaluation.? No acute events reported overnight. No current complaints. VS stable.? Patient is in bed search status/pending CARE team evaluation. Will continue to monitor. 01/18/2025 13:38 PM patient will be admitted to the psych unit this ended the ED observevation Time: 09:30 Medications Administered Generic Name Dose Route Start Last Admin Trade Name Freq PRN Reason Stop Dose Admin Nicotine Polacrilex 2 mg 01/16/25 16:30 01/17/25 23:21 Nicotine Polacrilex 2 Mg Gum BUCCAL 2 mg Q1H PRN Administration Nicotine Cravings Discontinued Medications Generic Name Dose Route Start Last Admin Trade Name Freq PRN Reason Stop Dose Admin Diphenhydramine HCl 50 mg 01/16/25 05:59 01/16/25 06:08 Diphenhydramine Hcl 25 Mg Capsule PO 01/16/25 06:00 50 mg ONCE ONE Administration Diphenhydramine HCl 25 mg 01/16/25 09:15 01/16/25 09:20 Diphenhydramine Hcl 25 Mg Capsule PO 01/16/25 09:16 25 mg ONCE ONE Administration Diphenhydramine HCl 50 mg 01/17/25 20:10 01/17/25 20:17 Diphenhydramine Hcl 25 Mg Capsule PO 01/17/25 20:11 50 mg ONCE ONE Administration Hydroxyzine HCl 50 mg 01/16/25 15:25 01/16/25 15:29 Hydroxyzine Hcl 50 Mg Tablet PO 01/16/25 15:26 50 mg ONCE ONE Administration Hydroxyzine HCl 50 mg 01/17/25 12:44 01/17/25 13:01 Hydroxyzine Hcl 50 Mg Tablet PO 01/17/25 12:45 50 mg ONCE ONE Administration Hydroxyzine HCl 50 mg 01/17/25 23:50 01/18/25 00:32 Hydroxyzine Hcl 50 Mg Tablet PO 01/17/25 23:51 50 mg ONCE ONE Administration Lorazepam 1 mg 01/16/25 10:12 01/16/25 10:20 Lorazepam 1 Mg Tablet PO 01/16/25 10:13 1 mg ONCE ONE Administration Lorazepam 2 mg 01/17/25 06:03 01/17/25 06:13 Lorazepam 1 Mg Tablet PO 01/17/25 06:04 2 mg ONCE ONE Administration Medical Decision Making Lab Data 01/16/25 07:53 01/16/25 07:53 Labs: Lab Results 01/16/25 01/16/25 01/17/25 Range/Units 06:40 07:53 19:54 WBC 8.6 (4.8-10.8) X10*3/uL RBC 5.47 (4.60-5.80) X10*6/uL Hgb 16.3 (14.0-18.0) g/dl Hct 48.5 (42.0-52.0) % MCV 88.7 (80.0-98.0) fL MCH 29.8 (27.0-33.0) pg MCHC 33.6 (31.0-36.0) g/dl RDW 13.1 (11.0-16.0) % Plt Count 382 D (160-400) X10*3/uL MPV 8.8 L (9.4-12.4) fL Immature Gran % (Auto) 0.3 (0.0-0.4) % Neut % (Auto) 72.2 (45-73) % Lymph % (Auto) 20.3 (20-40) % Wells % (Auto) 5.5 (2-11) % Eos % (Auto) 0.8 (0-4) % Baso % (Auto) 0.9 (0-2) % Lymph # (Auto) 1.8 (1.2-4.9) X10*3/uL Wells # (Auto) 0.5 (0.1-1.2) X10*3/uL Eos # (Auto) 0.1 (0.0-0.4) X10*3/uL Baso # (Auto) 0.1 (0.0-0.2) X10*3/uL Abs Immat Gran (auto) 0.03 (0.00-0.03) X10*3/uL Absolute Neuts (auto) 6.2 (2.0-8.3) x10*3/uL Absolute Nucleated RBC 0.000 (0.0-0.012) X10*3/uL Nucleated RBC % (auto) 0.0 (0.0-0.2) /100WBC Sodium 140 (135-145) mmol/L Potassium 3.8 (3.3-5.1) mmol/L Chloride 104 (96-108) mmol/L Carbon Dioxide 27 (22-29) mmol/L Anion Gap 13 (12-20) BUN 13 (9-16) mg/dL Creatinine 0.79 (0.5-1.4) mg/dL Estim Creat Clear Calc 155.2 Estimated GFR > 60 Random Glucose 106 (60-115) mg/dL Calcium 9.5 (8.4-10.2) mg/dL Total Bilirubin 0.6 (0.0-1.0) mg/dL AST 51 H (5-37) U/L ALT 68 H (0-40) U/L Alkaline Phosphatase 81 (39-117) U/L Total Protein 7.7 (6.5-8.0) g/dL Albumin 4.5 (3.5-5.0) g/dL Urine Color Yellow Urine Appearance Clear Urine pH 6.0 (5.0-9.0) Ur Specific [place] 1.020 (1.005-1.025) Urine Protein Negative (Neg-Trace) mg/dL Urine Glucose (UA) Negative (Negative) mg/dL Urine Ketones Negative (Negative) mg/dL Urine Blood Negative (Negative) Urine Nitrite Negative (Negative) Ur Leukocyte Esterase Negative (Negative) Salicylates < 5.0 L (15-30) mg/dL Urine Opiates Screen Not Detected (Not Detect) Ur Buprenorphine Scrn Not Detected (Not Detect) ng/mL Ur Oxycodone Screen Not Detected (Not Detect) ng/mL Urine Methadone Screen Not Detected (Not Detect) ng/mL Urine Fentanyl Screen Not Detected (Not Detect) Acetaminophen < 3 (<30) mcg/mL Ur Barbiturates Screen Not Detected (Not Detect) Ur Phencyclidine Scrn Not Detected (Not Detect) Ur Amphetamines Screen Not Detected (Not Detect) U Benzodiazepines Scrn Not Detected (Not Detect) Urine Cocaine Screen Not Detected (Not Detect) U Marijuana (THC) Screen POSITIVE H (Not Detect) Ethyl Alcohol < 10 mg/dL Discharge Plan Discharge Clinical Impression: Anna Patient Disposition: Admitted As Inpatient Interventions: [place]-Suicide Risk Severity Scale Last Done: 01/18/25 06:10
[2025-01-16] MEDS: diphenhydrAMINE HCL 25 MG CAPSULE PO (09:20)
--- NOTE | 2025-01-16 09:48 | PC.NURSE ---
PT HAS BEEN FREQUENTLY COMING TO THE DESK TO QUESTION WHAT THE TREATMENT PLAN IS. PT IS GETTING AGITATED, ACCUSING STAFF OF CONSPIRING AGAINST HIM. PT IS ACCUSING STAFF OF HIDING INFORMATION FROM HIM. RN GAVE PT 25MG BENADRYL WITH NO EFFECT.
[2025-01-16] MEDS: LORazepam 1 MG TABLET PO (10:20)
[2025-01-16] MEDS: hydrOXYzine HCL 50 MG TABLET PO (15:29)
[2025-01-16 15:56] VITALS: BP 129/6; PULSE 53; RESP 19; TEMP 36.9; O2SAT 100
[2025-01-16] MEDS: Nicotine Polacrilex 2 MG GUM BUCCAL (16:34)
[2025-01-17 03:05] VITALS: RESP 16
[2025-01-17] MEDS: Nicotine Polacrilex 2 MG GUM BUCCAL ×3 (05:03→23:21)
--- NOTE | 2025-01-17 05:08 | PC.NURSE ---
pt awoke and ambulated steadily to bathroom. requested nicotine gum. states calmly to staff this is all a misunderstanding and I shouldn't be here. therepeutic communication offered. pt remains calm, appropriate. states needs are met. now back in bed.
[2025-01-17 06:13] VITALS: BP 123/72; PULSE 55; RESP 16; TEMP 36.4; O2SAT 98
[2025-01-17] MEDS: LORazepam 1 MG TABLET 2 MG PO (06:13)
--- NOTE | 2025-01-17 10:15 | PHA.MEDREC ---
Pharmacy Consult ? Medication Reconciliation Pharmacy has reviewed the medication reconciliation completed by nursing. No pharmacy claims, match no medications to confirm.
[2025-01-17] MEDS: hydrOXYzine HCL 50 MG TABLET PO (13:01)
[2025-01-17 16:48] VITALS: BP 130/71; PULSE 72; RESP 18; TEMP 36.8; O2SAT 99
[2025-01-17] MEDS: diphenhydrAMINE HCL 25 MG CAPSULE 50 MG PO (20:17)
[2025-01-17 20:23] LABS: Appearance Urine Clear; Color Urine Yellow; Glucose Urine UA Negative (Negative); Leukocyte Esterase Urine Negative (Negative); Nitrite Urine Negative (Negative); Urine Blood Negative (Negative); Urine Ketones Negative (Negative); Urine Protein Negative (Neg-Trace)
--- NOTE | 2025-01-17 23:18 | PC.NURSE ---
This RN assumed pt care @2300. Pt a&ox4, no signs of distress. Pt pacing around the nurses station. Pt requested nicotine gum Plan of care ongoing.
--- NOTE | 2025-01-17 23:21 | PC.NURSE ---
Pt medicated per [facility] Plan of care ongoing.
--- NOTE | 2025-01-18 00:30 | PC.NURSE ---
pt had relatively uneventful day, spoke with mom on the phone regarding frustrations about being put as an inpatient bedsearch
[2025-01-18] MEDS: hydrOXYzine HCL 50 MG TABLET PO (00:32)
--- NOTE | 2025-01-18 00:32 | PC.NURSE ---
Pt requesting meds for sleep Provider notified and aware Pt medicated per mar Plan of care ongoing.
[2025-01-18 06:00] VITALS: BP 136/70; PULSE 60; RESP 16; TEMP 36.6; O2SAT 99
[2025-01-18 08:30] VITALS: BP 129/63; PULSE 63; RESP 16; TEMP 36.6; O2SAT 99
--- NOTE | 2025-01-18 08:50 | PC.NURSE ---
Patient to nurses station multiple times about talking about his family dynamic, wants to have a talk with his mom, states he needs outpatient resources
--- NOTE | 2025-01-18 11:27 | PC.NURSE ---
Patients mom calling, asking for patient to stop calling her over and over to come her him, patient is continuously coming to nurses station asking is this god giving me a second chance i want to call my friends and tell them I am better
--- NOTE | 2025-01-18 13:57 | PC.NURSE ---
Nurse to nurse to M3
[2025-01-18 14:41] VITALS: BP 135/71; PULSE 90; RESP 16; TEMP 36.5; O2SAT 98
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
[2025-01-18] MEDS: hydrOXYzine HCL 25 MG TABLET PO (17:06)
[2025-01-18] MEDS: OLANZapine 5 MG TABLET PO (18:30)
[2025-01-18] MEDS: Nicotine Polacrilex 2 MG GUM BUCCAL ×2 (18:33→21:16)
[2025-01-18 18:41] VITALS: BMI 22.3
[2025-01-18 20:00] VITALS: BP 140/74; PULSE 57; RESP 14; TEMP 36.8; O2SAT 99
[2025-01-19 07:47] VITALS: BP 118/78; PULSE 55; RESP 16; TEMP 36.7; O2SAT 100
[2025-01-19 08:18] LABS: Estimated Average Glucose 105 mg/dL; Hemoglobin A1C 152.9522 umol/L; Hemoglobin A1c % 5.3 % (<6.0)
[2025-01-19 08:30] LABS: Cholesterol 162 mg/dL (<200); HDL Cholesterol 52 mg/dL (>40); LDL Cholesterol Calculated 94 mg/dL (<100); Triglycerides 84 mg/dL (<150)
[2025-01-19 08:53] LABS: Folate 9.4 ng/mL (> or = 4.0); Vitamin B12 1383 pg/mL (200-900)
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
[2025-01-19] MEDS: ARIPiprazole 2 MG TABLET PO (12:01)
--- NOTE | 2025-01-19 12:33 | MHC.CLN ---
NUTRITION CONSULT DUE TO PATIENT REPORTS 30# WEIGHT LOSS X ONE MONTH. NO PRIOR WEIGHT HX VIEWED. BMI=22.3, WITHIN NORMAL RANGE. ANTICIPATE IMPROVED APPETITE IN CONTROLLED ENVIRONMENT. PLEASE CONSULT RD IF POOR PO.
[2025-01-19] MEDS: Nicotine Polacrilex 2 MG GUM BUCCAL ×2 (15:11→19:37)
[2025-01-19 20:02] VITALS: BP 132/66; PULSE 93; RESP 16; TEMP 36.6; O2SAT 97
[2025-01-19] MEDS: Divalproex Sodium ER 500 MG TAB.ER.24H 1000 MG PO (21:10)
[2025-01-19] MEDS: Melatonin 3 MG TABLET PO (21:46)
[2025-01-20 07:46] VITALS: BP 144/91; PULSE 76; RESP 16; TEMP 36.9; O2SAT 98
[2025-01-20] MEDS: OLANZapine 5 MG TABLET PO (07:48)
[2025-01-20] MEDS: ARIPiprazole 2 MG TABLET PO ×2 (07:48→10:48)
[2025-01-20] MEDS: Nicotine Polacrilex 2 MG GUM BUCCAL (07:49)
[2025-01-20] MEDS: Nicotine Polacrilex Lozenge 4 MG LOZENGE BUCCAL (10:50)
[2025-01-20 11:38] LABS: Glucose, Whole Blood 90 mg/dL (60-115)
--- NOTE | 2025-01-20 11:49 | PC.NURSE ---
Patient was sitting in the milieu when he was observed leaning over in his chair and putting himself to the floor. This was witnessed and there was no LOC. POC 90 VS BP 127/62 p68 R18 O298% on RA. Stated I'm so worried something may have happened to my mom I had to collapse myself on the floor . Stated he hit his head on the R side. No redness, swelling or henson noted. Provider notified and CT ordered. PT stated This is why I should have been allowed to go home today so things like this wouldn't happen .
--- NOTE | 2025-01-20 13:31 | HO.PM.IMCN ---
History of Present Illness Data of Consult Service Date: 01/20/25 Requesting physician: Arturo Hamilton Primary Care Provider: None Physician HPI Reason for consult: Witnessed fall with head strike. 24-year-old male with past medical history of autism and kylah here on adult inpatient Psych is being seen today for a witnessed fall. Staff reports a witnessed fall out of a chair. Per patient he was sitting in the chair fell forward landing on his head. He reports to me that just prior to his fall he was ?losing control of his existence with the weight of the world on his shoulders just prior to leaning forward and falling. Upon further questioning he denies any loss of consciousness, he remembers the details of the fall. He denies any visual changes, headaches, dizziness, lightheadedness or any other concerning symptoms. Reports that he has not been feeling well. He also reports that he was recently started on Abilify and Depakote yesterday, thought that maybe this is the reason why he may have fallen. He has a small red bump on the left side of his head at his hairline. No tenderness to palpation, no evidence of any bleeding, or bruising. He is ambulating with a steady gait, neurologically intact. He denies any concerning symptoms. Reports that this feels similar to his past panic attacks where he has fallen. Review of Systems Review of Systems: Denies any shortness of breath, chest pain, dizziness, lightheadedness, abdominal pain or discomfort, nausea vomiting or diarrhea PMFSH Social History Household Members: [facility] Do you presently have visiting nurse or other home services: No Patient Tobacco Use Status: Never used Tobacco Smoked in Last 30 Days: Yes e-Cigarette/Vaping Use: Currently Using Frequency of e-Cigarette/Vaping Use: Daily Patient Interested in Nicotine Replacement: Yes Patient Given Instructions on How to Stop Smoking: Yes Date Education Initiated: 01/18/25 Second Hand Smoke Exposure: No Use of substances other than those prescribed or required for medical reasons: Yes Substance Use Type: Marijuana Substance Use Frequency: Daily Last Used Substance: Just Prior to Admission Currently Displaying Signs/Symptoms of Drug Intoxication Withdrawal: No Any prior treatment program specific to substance use: No Have you been hit, kicked, punched, or otherwise hurt by someone within the past year? If so, by whom?: No Do you feel safe in your current relationship?: No Current Relationship Is there a partner from a previous relationship who is making you feel unsafe now?: No Are you made to feel afraid or neglected: No Advance Directives: No Do you have thoughts of harming others: None Do you have a plan to hurt others: No Plan Recently lost weight without trying: Yes How much weight loss: 24-33 pounds Eating poorly because of decreased appetite: Yes Nutrition screen score: 6 Nutrition Risks: No Nutritional Risk Poor oral hygiene: No service: No Sexual orientation: Bisexual Meds Allergies Allergy/AdvReac Type Severity Reaction Status Date / Time ondansetron [From Zofran] AdvReac Anxiety Verified 01/16/25 05:59 Active Medications: Current Medications Acetaminophen (Acetaminophen 325 Mg Tablet) 650 mg PO Q6H PRN PRN Reason: Headache/Pain, Scale 1-10 Al Hydroxide/Mg Hydroxide (Magnesium Hydrox/Alum Hydrox 30 Ml Oral.Susp) 30 ml PO Q6H PRN PRN Reason: Heartburn/Nausea Aripiprazole (Aripiprazole 5 Mg Tablet) 5 mg PO DAILY CHAUNCEY Divalproex Sodium (Divalproex Sodium Er 500 Mg Tab.Er.24h) 1,500 mg PO BEDTIME CHAUNCEY Hydroxyzine HCl (Hydroxyzine Hcl 25 Mg Tablet) 25 mg PO Q6H PRN PRN Reason: mild anxiety Last Admin: 01/18/25 17:06 Dose: 25 mg Magnesium Hydroxide (Milk Of Magnesia 30 Ml Oral.Susp) 30 ml PO DAILY PRN PRN Reason: Constipation Melatonin (Melatonin 3 Mg Tablet) 3 mg PO BEDTIME CHAUNCEY Last Admin: 01/19/25 21:46 Dose: 3 mg Nicotine Polacrilex (Nicotine Polacrilex Lozenge 4 Mg Lozenge) 4 mg BUCCAL Q1H PRN PRN Reason: Nicotine Cravings Last Admin: 01/20/25 10:50 Dose: 4 mg Olanzapine (Olanzapine 5 Mg Tablet) 5 mg PO Q4H PRN PRN Reason: agitation Last Admin: 01/20/25 07:48 Dose: 5 mg Trazodone HCl (Trazodone Hcl 50 Mg Tablet) 50 mg PO BEDTIME MRX1 PRN PRN Reason: Insomnia Home Medications ?Medication ?Instructions ?Recorded ?Confirmed ?Last Taken ?Type No Known Home Meds 01/14/25 01/16/25 Unknown History Physical Exam Vital Signs and Narrative: Vital Signs: Last Vital Signs Temp 98.4 F 01/20/25 07:46 Pulse 76 01/20/25 07:46 Resp 16 01/20/25 07:46 BP 144/91 H 01/20/25 07:46 Pulse Ox 98 01/20/25 07:46 O2 Del Method Room Air 01/20/25 07:46 BMI result Body Mass Index 22.3 Alert and oriented X3, able to give good history. Cooperative Neuro: CN II-X11 intact, no deficits, visual acuity intact EYES: PERRLA, EOM intact ENT: hearing intact Cardiac: S1 S2 RRR, no edema in Lower ext Pulmonary: lungs clear to auscultation, No increased WOB. MSK: Strength 5/5 upper and lower extremities. Gait steady : Deferred Extremities: no edema in lower extremities Psych: mood stable. Skin: Warm and dry, small red raised area to left side of scalp. No bruising or pain with tenderness. Results Labs 01/16/25 07:53 01/16/25 07:53 Labs: Laboratory Results - last 24 hr 01/20/25 11:35 POC Glucose 90 Assessment and Plan (1) Fall: Status: Acute Plan Fall with head strike On exam he is neurologically intact Monitor for any changes and notify hospitalist Fall possibly contributed to underlying mental illness and new medications that were started. Patient reports that he had a panic attack just prior to falling
--- NOTE | 2025-01-20 13:49 | P.PNPSI_ITS ---
Subjective Subjective Date of Service: 01/20/25 Reason For Visit: anna Interim History: trying to talk his way out of the hospital. offered for pt to sign 3 day notice. pantoja warning provided. encouraged pt to talk to his mother. he reports his mother is blowing things out of proportion and states he was sleeping OK at home. later in conversation notes he has not been sleeping recently and identifies sleep as a goal of his. c/o nicotine withdrawal, changed to lozenge and increased dose to 4 mg each. per staff, polite, pleasant. 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 awake all NOC. took abilify and VPA. Mental Status Exam Mental Status Exam Narrative: adequately dressed and groomed. cooperative. no PMA/PMR. speech incr amount, nml rate, decr latency. thoughts linear and logical in response to questions, spontaneously digressive. affect flexible, normo-intense, non-labile. mood not assessed. no SI/HI/AVH expressed. Diagnostics Vital Signs (24Hr): Vital Signs - 24 hr 01/19/25 20:02 01/20/25 07:46 Temperature 97.8 F 98.4 F Pulse Rate 93 76 Respiratory Rate 16 16 Blood Pressure 132/66 144/91 H Pulse Oximetry 97 98 Oxygen Delivery Method Room Air Room Air BMI result Body Mass Index 22.3 Labs 01/16/25 07:53 01/16/25 07:53 Labs: Laboratory Results - last 48 hr 01/19/25 01/20/25 07:34 11:35 POC Glucose 90 Estimat Average Glucose 105 Hemoglobin A1c % 5.3 Triglycerides 84 Cholesterol 162 LDL Cholesterol, Calc 94 HDL Cholesterol 52 Vitamin B12 1383 H Folate 9.4 TSH 2.50 Free T4 1.10 Medications Medications Current Medications Acetaminophen (Acetaminophen 325 Mg Tablet) 650 mg PO Q6H PRN PRN Reason: Headache/Pain, Scale 1-10 Al Hydroxide/Mg Hydroxide (Magnesium Hydrox/Alum Hydrox 30 Ml Oral.Susp) 30 ml PO Q6H PRN PRN Reason: Heartburn/Nausea Aripiprazole (Aripiprazole 5 Mg Tablet) 5 mg PO DAILY [facility] Divalproex Sodium (Divalproex Sodium Er 500 Mg Tab.Er.24h) 1,500 mg PO BEDTIME [facility] Hydroxyzine HCl (Hydroxyzine Hcl 25 Mg Tablet) 25 mg PO Q6H PRN PRN Reason: mild anxiety Last Admin: 01/18/25 17:06 Dose: 25 mg Magnesium Hydroxide (Milk Of Magnesia 30 Ml Oral.Susp) 30 ml PO DAILY PRN PRN Reason: Constipation Melatonin (Melatonin 3 Mg Tablet) 3 mg PO BEDTIME [facility] Last Admin: 01/19/25 21:46 Dose: 3 mg Nicotine Polacrilex (Nicotine Polacrilex Lozenge 4 Mg Lozenge) 4 mg BUCCAL Q1H PRN PRN Reason: Nicotine Cravings Last Admin: 01/20/25 10:50 Dose: 4 mg Olanzapine (Olanzapine 5 Mg Tablet) 5 mg PO Q4H PRN PRN Reason: agitation Last Admin: 01/20/25 07:48 Dose: 5 mg Trazodone HCl (Trazodone Hcl 50 Mg Tablet) 50 mg PO BEDTIME MRX1 PRN PRN Reason: Insomnia Allergies Allergies Allergy/AdvReac Type Severity Reaction Status Date / Time ondansetron [From Zofran] AdvReac Anxiety Verified 01/16/25 05:59 Assessment & Plan Assessment & Plan (1) Anna: Status: Acute Code(s): F30.9 - Manic episode, unspecified (2) Autism: Status: Acute Code(s): F84.0 - Autistic disorder Plan 01/19: start depakote ER 1000 mg QHS. start abilify 2 mg today, plan to titrate to 5 mg daily. 01/20: asking to leave hospital and not take medications, believes they are making him restless at night. observed that nicotine withdrawal is far more likely to be doing that than HS meds. observed fall from chair today in which pt broke impact with his arms but made some contact with head to floor. medically evaluated. pt reported panic attack just prior, repeating episodes he has described previously as seizures. unclear if this is a bid to be able to stop medications. increase VPA to 1500 mg QHS and increase abilify to 5 mg daily. pantoja warning provided. change nicotine to lozenge and increase dosing to 4 mg/hr PRN. Reason for continued inpatient stay Substantial Risk for: harm to others Time Spent With Patient Time: Total time managing care of this patient today __25__ minutes.
[2025-01-20] MEDS: Acetaminophen 325 MG TABLET 650 MG PO (17:44)
[2025-01-20 19:56] VITALS: BP 150/66; PULSE 92; RESP 18; TEMP 36.4; O2SAT 96
[2025-01-20] MEDS: Divalproex Sodium ER 500 MG TAB.ER.24H 1500 MG PO (21:11)
[2025-01-20] MEDS: Melatonin 3 MG TABLET PO (21:11)
[2025-01-21 07:37] VITALS: BP 126/62; PULSE 75; RESP 16; TEMP 36.4; O2SAT 98
[2025-01-21] MEDS: ARIPiprazole 5 MG TABLET PO (08:41)
--- NOTE | 2025-01-21 11:37 | P.PNPSI_ITS ---
Subjective Subjective Date of Service: 01/21/25 Reason For Visit: anna Interim History: tolerating meds well. asking to leave. 3-day up friday. informed abilify would be increased to 10 mg daily. Mental Status Exam Mental Status Exam Narrative: adequately dressed and groomed. cooperative. no PMA/PMR. speech incr amount, nml rate, decr latency. thoughts linear and logical in response to questions, spontaneously digressive. affect flexible, normo-intense, non-labile. mood not assessed. no SI/HI/AVH expressed. Diagnostics Vital Signs (24Hr): Vital Signs - 24 hr 01/20/25 19:56 01/21/25 07:37 Temperature 97.5 F 97.5 F Pulse Rate 92 75 Respiratory Rate 18 16 Blood Pressure 150/66 H 126/62 Pulse Oximetry 96 98 Oxygen Delivery Method Room Air Room Air BMI result Body Mass Index 22.3 Labs 01/16/25 07:53 01/16/25 07:53 Labs: Laboratory Results - last 48 hr 01/20/25 11:35 POC Glucose 90 Medications Medications Current Medications Acetaminophen (Acetaminophen 325 Mg Tablet) 650 mg PO Q6H PRN PRN Reason: Headache/Pain, Scale 1-10 Last Admin: 01/20/25 17:44 Dose: 650 mg Al Hydroxide/Mg Hydroxide (Magnesium Hydrox/Alum Hydrox 30 Ml Oral.Susp) 30 ml PO Q6H PRN PRN Reason: Heartburn/Nausea Aripiprazole (Aripiprazole 10 Mg Tablet) 10 mg PO DAILY [facility] Divalproex Sodium (Divalproex Sodium Er 500 Mg Tab.Er.24h) 1,500 mg PO BEDTIME [facility] Last Admin: 01/20/25 21:11 Dose: 1,500 mg Hydroxyzine HCl (Hydroxyzine Hcl 25 Mg Tablet) 25 mg PO Q6H PRN PRN Reason: mild anxiety Last Admin: 01/18/25 17:06 Dose: 25 mg Magnesium Hydroxide (Milk Of Magnesia 30 Ml Oral.Susp) 30 ml PO DAILY PRN PRN Reason: Constipation Melatonin (Melatonin 3 Mg Tablet) 3 mg PO BEDTIME [facility] Last Admin: 01/20/25 21:11 Dose: 3 mg Nicotine Polacrilex (Nicotine Polacrilex Lozenge 4 Mg Lozenge) 4 mg BUCCAL Q1H PRN PRN Reason: Nicotine Cravings Last Admin: 01/20/25 10:50 Dose: 4 mg Olanzapine (Olanzapine 5 Mg Tablet) 5 mg PO Q4H PRN PRN Reason: agitation Last Admin: 01/20/25 07:48 Dose: 5 mg Trazodone HCl (Trazodone Hcl 50 Mg Tablet) 50 mg PO BEDTIME MRX1 PRN PRN Reason: Insomnia Allergies Allergies Allergy/AdvReac Type Severity Reaction Status Date / Time ondansetron [From Zofran] AdvReac Anxiety Verified 01/16/25 05:59 Assessment & Plan Assessment & Plan (1) Anna: Status: Acute Code(s): F30.9 - Manic episode, unspecified (2) Autism: Status: Acute Code(s): F84.0 - Autistic disorder Plan 01/19: start depakote ER 1000 mg QHS. start abilify 2 mg today, plan to titrate to 5 mg daily. 01/20: asking to leave hospital and not take medications, believes they are making him restless at night. observed that nicotine withdrawal is far more likely to be doing that than HS meds. observed fall from chair today in which pt broke impact with his arms but made some contact with head to floor. medically evaluated. pt reported panic attack just prior, repeating episodes he has described previously as seizures. unclear if this is a bid to be able to stop medications. increase VPA to 1500 mg QHS and increase abilify to 5 mg daily. pantoja warning provided. change nicotine to lozenge and increase dosing to 4 mg/hr PRN. 01/21: reports feeling calmer, more reserved, mood more regulated. continue VPA 1500 QHS, increase abilify to 10 mg daily. submitted 3-day notice, up next friday. Reason for continued inpatient stay Substantial Risk for: harm to others and rapid decompensation Time Spent With Patient Time: Total time managing care of this patient today _25___ minutes.
[2025-01-21 20:00] VITALS: BP 126/77; PULSE 92; RESP 16; TEMP 37.4; O2SAT 97
[2025-01-21] MEDS: Divalproex Sodium ER 500 MG TAB.ER.24H 1500 MG PO (21:49)
[2025-01-21] MEDS: Melatonin 3 MG TABLET PO (21:50)
--- NOTE | 2025-01-22 07:23 | HO.PSYCHPN ---
Subjective Subjective Date of Service: 01/22/25 Reason For Visit: anna Subjective Notes: 3 Day Interim History: met with patient. Discussed with Nursing. Isolative. Med adherent. Overall reports that he is doing much better today. Feels that medication regimen and groups are helping him manage his mood and feel hopeful. Had a good visit with his mom today. Denies concerns regarding med regimen or sleep. Medication Compliance: Yes Side effects from medications: No Attending Groups: Intermittent Review of Systems Acute medical concerns: No Review of Systems Review of Systems Unremarkable Mental Status Exam Mental Status Exam Narrative: adequately dressed and groomed. cooperative. no PMA/PMR. speech incr amount, nml rate, decr latency. thoughts linear and logical in response to questions, spontaneously digressive. affect flexible, normo-intense, non-labile. mood not assessed. no SI/HI/AVH expressed. Diagnostics Vital Signs (24Hr): Vital Signs - 24 hr 01/21/25 07:37 01/21/25 20:00 Temperature 97.5 F 99.4 F Pulse Rate 75 92 Respiratory Rate 16 16 Blood Pressure 126/62 126/77 Pulse Oximetry 98 97 Oxygen Delivery Method Room Air Room Air BMI result Body Mass Index 22.3 Labs 01/16/25 07:53 01/16/25 07:53 Labs: Laboratory Results - last 48 hr 01/20/25 11:35 POC Glucose 90 Medications Medications Current Medications Acetaminophen (Acetaminophen 325 Mg Tablet) 650 mg PO Q6H PRN PRN Reason: Headache/Pain, Scale 1-10 Last Admin: 01/20/25 17:44 Dose: 650 mg Al Hydroxide/Mg Hydroxide (Magnesium Hydrox/Alum Hydrox 30 Ml Oral.Susp) 30 ml PO Q6H PRN PRN Reason: Heartburn/Nausea Aripiprazole (Aripiprazole 10 Mg Tablet) 10 mg PO DAILY [facility] Divalproex Sodium (Divalproex Sodium Er 500 Mg Tab.Er.24h) 1,500 mg PO BEDTIME [facility] Last Admin: 01/21/25 21:49 Dose: 1,500 mg Hydroxyzine HCl (Hydroxyzine Hcl 25 Mg Tablet) 25 mg PO Q6H PRN PRN Reason: mild anxiety Last Admin: 01/18/25 17:06 Dose: 25 mg Magnesium Hydroxide (Milk Of Magnesia 30 Ml Oral.Susp) 30 ml PO DAILY PRN PRN Reason: Constipation Melatonin (Melatonin 3 Mg Tablet) 3 mg PO BEDTIME [facility] Last Admin: 01/21/25 21:50 Dose: 3 mg Nicotine Polacrilex (Nicotine Polacrilex Lozenge 4 Mg Lozenge) 4 mg BUCCAL Q1H PRN PRN Reason: Nicotine Cravings Last Admin: 01/20/25 10:50 Dose: 4 mg Olanzapine (Olanzapine 5 Mg Tablet) 5 mg PO Q4H PRN PRN Reason: agitation Last Admin: 01/20/25 07:48 Dose: 5 mg Trazodone HCl (Trazodone Hcl 50 Mg Tablet) 50 mg PO BEDTIME MRX1 PRN PRN Reason: Insomnia Allergies Allergies Allergy/AdvReac Type Severity Reaction Status Date / Time ondansetron [From Zofran] AdvReac Anxiety Verified 01/16/25 05:59 Assessment & Plan Assessment & Plan (1) Anna: Status: Acute Code(s): F30.9 - Manic episode, unspecified (2) Autism: Status: Acute Code(s): F84.0 - Autistic disorder Plan 01/19: start depakote ER 1000 mg QHS. start abilify 2 mg today, plan to titrate to 5 mg daily. 01/20: asking to leave hospital and not take medications, believes they are making him restless at night. observed that nicotine withdrawal is far more likely to be doing that than HS meds. observed fall from chair today in which pt broke impact with his arms but made some contact with head to floor. medically evaluated. pt reported panic attack just prior, repeating episodes he has described previously as seizures. unclear if this is a bid to be able to stop medications. increase VPA to 1500 mg QHS and increase abilify to 5 mg daily. pantoja warning provided. change nicotine to lozenge and increase dosing to 4 mg/hr PRN. 01/21: reports feeling calmer, more reserved, mood more regulated. continue VPA 1500 QHS, increase abilify to 10 mg daily. submitted 3-day notice, up next friday. 01/22: no changes Reason for continued inpatient stay Substantial Risk for: rapid decompensation Time Spent With Patient Time: Total time managing care of this patient today ____ minutes.
[2025-01-22 08:39] VITALS: BP 116/56; PULSE 75; RESP 16; TEMP 36.4; O2SAT 96
[2025-01-22] MEDS: ARIPiprazole 10 MG TABLET PO (08:44)
[2025-01-22 20:00] VITALS: BP 133/76; PULSE 85; RESP 16; TEMP 37.1; O2SAT 97
[2025-01-22] MEDS: Melatonin 3 MG TABLET PO (22:27)
[2025-01-22] MEDS: Divalproex Sodium ER 500 MG TAB.ER.24H 1500 MG PO (22:27)
[2025-01-23 08:11] VITALS: BP 135/65; PULSE 91; RESP 16; TEMP 36.8; O2SAT 98
[2025-01-23] MEDS: ARIPiprazole 10 MG TABLET PO (09:33)
[2025-01-23] MEDS: hydrOXYzine HCL 25 MG TABLET PO (09:36)
--- NOTE | 2025-01-23 12:07 | HO.PSYCHPN ---
Subjective Subjective Date of Service: 01/23/25 Reason For Visit: anna Subjective Notes: 3 Day (exp 01/25) Medical Problems Affecting Mental Status: No Interim History: Focused on discharge, wants to leave tomorrow. Reporting that he is less anxious and attributes this to meds. Overheard expressing gratitude to staff. Told me he is grateful to his mom. This is in contrast to his irritability towards her earlier in the hospital stay. Hopes to go back into the [facility]. Noted to be more social with peers. Eating and sleeping OK. Medication Compliance: Yes Side effects from medications: No Attending Groups: Yes Review of Systems Acute medical concerns: No Mental Status Exam Mental Status Exam Patient Appearance: Well Grooomed Patient Orientation: Situation Level of Consciousness: Alert Patient Behavior: Appropriate Mood Description: Anxious Affect Description: Calm Patient Cognition Impaired: No Ability to Follow Directions: Excellent Speech Pattern: Clear Memory Description: Intact Hallucinations: None Delusions: Not Present Thought Process: Linear Thought Content: positive for Intact Judgement: Fair Diagnostics Vital Signs (24Hr): Vital Signs - 24 hr 01/22/25 20:00 01/23/25 08:11 Temperature 98.8 F 98.2 F Pulse Rate 85 91 Respiratory Rate 16 16 Blood Pressure 133/76 135/65 Pulse Oximetry 97 98 Oxygen Delivery Method Room Air Room Air BMI result Body Mass Index 22.3 Labs 01/16/25 07:53 01/16/25 07:53 Medications Medications Current Medications Acetaminophen (Acetaminophen 325 Mg Tablet) 650 mg PO Q6H PRN PRN Reason: Headache/Pain, Scale 1-10 Last Admin: 01/20/25 17:44 Dose: 650 mg Al Hydroxide/Mg Hydroxide (Magnesium Hydrox/Alum Hydrox 30 Ml Oral.Susp) 30 ml PO Q6H PRN PRN Reason: Heartburn/Nausea Aripiprazole (Aripiprazole 10 Mg Tablet) 10 mg PO DAILY [facility] Last Admin: 01/23/25 09:33 Dose: 10 mg Divalproex Sodium (Divalproex Sodium Er 500 Mg Tab.Er.24h) 1,500 mg PO BEDTIME [facility] Last Admin: 01/22/25 22:27 Dose: 1,500 mg Hydroxyzine HCl (Hydroxyzine Hcl 25 Mg Tablet) 25 mg PO Q6H PRN PRN Reason: mild anxiety Last Admin: 01/23/25 09:36 Dose: 25 mg Magnesium Hydroxide (Milk Of Magnesia 30 Ml Oral.Susp) 30 ml PO DAILY PRN PRN Reason: Constipation Melatonin (Melatonin 3 Mg Tablet) 3 mg PO BEDTIME [facility] Last Admin: 01/22/25 22:27 Dose: 3 mg Nicotine Polacrilex (Nicotine Polacrilex Lozenge 4 Mg Lozenge) 4 mg BUCCAL Q1H PRN PRN Reason: Nicotine Cravings Last Admin: 01/20/25 10:50 Dose: 4 mg Olanzapine (Olanzapine 5 Mg Tablet) 5 mg PO Q4H PRN PRN Reason: agitation Last Admin: 01/20/25 07:48 Dose: 5 mg Trazodone HCl (Trazodone Hcl 50 Mg Tablet) 50 mg PO BEDTIME MRX1 PRN PRN Reason: Insomnia Allergies Allergies Allergy/AdvReac Type Severity Reaction Status Date / Time ondansetron [From Zofran] AdvReac Anxiety Verified 01/16/25 05:59 Assessment & Plan Assessment & Plan (1) Anna: Status: Acute Code(s): F30.9 - Manic episode, unspecified (2) Autism: Status: Acute Code(s): F84.0 - Autistic disorder Plan 01/19: start depakote ER 1000 mg QHS. start abilify 2 mg today, plan to titrate to 5 mg daily. 01/20: asking to leave hospital and not take medications, believes they are making him restless at night. observed that nicotine withdrawal is far more likely to be doing that than HS meds. observed fall from chair today in which pt broke impact with his arms but made some contact with head to floor. medically evaluated. pt reported panic attack just prior, repeating episodes he has described previously as seizures. unclear if this is a bid to be able to stop medications. increase VPA to 1500 mg QHS and increase abilify to 5 mg daily. pantoja warning provided. change nicotine to lozenge and increase dosing to 4 mg/hr PRN. 01/21: reports feeling calmer, more reserved, mood more regulated. continue VPA 1500 QHS, increase abilify to 10 mg daily. submitted 3-day notice, up next friday. 01/22: no changes 01/23: no med changes Reason for continued inpatient stay Substantial Risk for: med/psych decompensation Time Spent With Patient Time: Total time managing care of this patient today ____ minutes.
[2025-01-23 19:45] VITALS: BP 143/69; PULSE 88; RESP 16; TEMP 36.9; O2SAT 99
[2025-01-23] MEDS: Divalproex Sodium ER 500 MG TAB.ER.24H 1500 MG PO (20:55)
[2025-01-23] MEDS: Melatonin 3 MG TABLET PO (20:56)
[2025-01-24 07:15] VITALS: BP 110/58; PULSE 67; RESP 16; TEMP 37.1; O2SAT 97
[2025-01-24] MEDS: ARIPiprazole 10 MG TABLET PO (08:10)
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
[2025-01-24 19:25] VITALS: BP 143/74; PULSE 84; RESP 16; TEMP 37.1; O2SAT 96
[2025-01-24 20:13] LABS: MANUAL DIFF FLAG NO
[2025-01-24] MEDS: Divalproex Sodium ER 500 MG TAB.ER.24H 1500 MG PO (20:14)
[2025-01-24 20:15] LABS: Basophils Absolute Auto 0.1 X10*3/uL (0.0-0.2); Basophils Percent Auto 0.8 % (0-2); Eosinophils Absolute Auto 0.2 X10*3/uL (0.0-0.4); Eosinophils Percent Auto 1.6 % (0-4); Hematocrit 46.5 % (42.0-52.0); Imm Gran Abs Auto 0.05 X10*3/uL (0.00-0.03); Imm Gran Pct Auto 0.5 % (0.0-0.4); Lymphocytes Absolute Auto 2.5 X10*3/uL (1.2-4.9); Lymphocytes Percent Auto 24.6 % (20-40); Mean Corpuscular HGB Conc 34.4 g/dl (31.0-36.0); Mean Corpuscular Hemoglobin 30.2 pg (27.0-33.0); Mean Corpuscular Volume 87.9 fL (80.0-98.0); Monocytes Absolute Auto 0.8 X10*3/uL (0.1-1.2); Monocytes Percent Auto 8.2 % (2-11); Neutrophils Absolute Auto 6.5 x10*3/uL (2.0-8.3); Neutrophils Percent Auto 64.3 % (45-73); Platelet Count 316 X10*3/uL (160-400); Red Blood Count 5.29 X10*6/uL (4.60-5.80); Red Cell Distribution Width 12.9 % (11.0-16.0); White Blood Count 10.1 X10*3/uL (4.8-10.8)
[2025-01-24 20:27] LABS: Valproate 43.3 mcg/mL (50.0-100.0)
[2025-01-24 20:32] LABS: Alanine Aminotransferase 39 U/L (0-40); Albumin Level 4.4 g/dL (3.5-5.0); Alkaline Phosphatase 92 U/L (39-117); Anion Gap 13 (12-20); Aspartate Amino Transferase 23 U/L (5-37); Bilirubin Direct 0.2 mg/dL (0.0-0.5); Bilirubin Total 0.4 mg/dL (0.0-1.0); Blood Urea Nitrogen 24 mg/dL (9-16); Calcium 9.3 mg/dL (8.4-10.2); Carbon Dioxide 25 mmol/L (22-29); Chloride 105 mmol/L (96-108); Creatinine Clr Calc Pharmacy 143.7; Estimated Glomerular Filt Rate > 60; Glucose Random 97 mg/dL (60-115); Potassium 4.1 mmol/L (3.3-5.1); Sodium 139 mmol/L (135-145); Total Protein 7.5 g/dL (6.5-8.0)
[2025-01-24] MEDS: Melatonin 3 MG TABLET PO (22:21)
[2025-01-25 07:46] VITALS: BP 117/69; PULSE 88; RESP 16; TEMP 36.9; O2SAT 98
[2025-01-25] MEDS: ARIPiprazole 10 MG TABLET PO (08:13)
== END 2025-01-25 10:44 | disposition home or self-care (01) | DRG 753 ==
LOC: HO.ED 01-18 12:56 → HO.PADLT16 01-18 13:00
PROVIDERS: Admitting Provider Psychiatry & Neurology Psychiatry; Emergency Provider Emergency Medicine Emergency Medical Services; Visit Provider Psychiatry & Neurology Psychiatry
DX: F30.9 Manic episode, unspecified (principal); R45.851 Suicidal ideations; F84.0 Autistic disorder; Z79.899 Other long term (current) drug therapy
CPT/HCPCS: 36415; 80048; 80053; 80061; 80076; 80143; 80164; 80179; 80307; 81003; 82607; 82746; 82947; 83036; 84439; 84443; 85025; 99285; S9485

== ENCOUNTER → 2025-01-18 12:43 | Outpatient (BNV) | payer OTHER, SELFPAY | PROVIDERS: Admitting Provider Psychiatry & Neurology Psychiatry; Emergency Provider Emergency Medicine Emergency Medical Services; Visit Provider Psychiatry & Neurology Psychiatry | DX: F30.9 Manic episode, unspecified (principal); F84.0 Autistic disorder | CPT/HCPCS: 99233 ==

== ENCOUNTER → 2025-01-18 12:43 | Outpatient (BNV) | payer MEDICAID, SELFPAY | PROVIDERS: Admitting Provider Psychiatry & Neurology Psychiatry; Emergency Provider Emergency Medicine Emergency Medical Services; Visit Provider Nurse Practitioner Family | DX: S09.90XA Unspecified injury of head, initial encounter (principal); W19.XXXA Unspecified fall, initial encounter; F41.9 Anxiety disorder, unspecified | CPT/HCPCS: 99232 ==

== ENCOUNTER 2025-02-04 23:56 | Inpatient (IN) | payer OTHER, SELFPAY ==
[2025-02-05] VITALS: BP 118/80; PULSE 80; O2SAT 98
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
[2025-02-05 00:21] VITALS: BMI 23.2
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
[2025-02-05 00:44] LABS: MANUAL DIFF FLAG NO
[2025-02-05 00:45] LABS: Basophils Absolute Auto 0.1 X10*3/uL (0.0-0.2); Basophils Percent Auto 0.5 % (0-2); Eosinophils Absolute Auto 0.1 X10*3/uL (0.0-0.4); Eosinophils Percent Auto 0.6 % (0-4); Hemoglobin 14.5 g/dl (14.0-18.0); Imm Gran Abs Auto 0.05 X10*3/uL (0.00-0.03); Imm Gran Pct Auto 0.4 % (0.0-0.4); Lymphocytes Absolute Auto 2.7 X10*3/uL (1.2-4.9); Lymphocytes Percent Auto 22.3 % (20-40); Mean Corpuscular HGB Conc 33.7 g/dl (31.0-36.0); Mean Corpuscular Hemoglobin 29.7 pg (27.0-33.0); Mean Corpuscular Volume 88.1 fL (80.0-98.0); Mean Platelet Volume 8.8 fL (9.4-12.4); Monocytes Absolute Auto 1.1 X10*3/uL (0.1-1.2); Monocytes Percent Auto 9.1 % (2-11); Neutrophils Absolute Auto 8.2 x10*3/uL (2.0-8.3); Neutrophils Percent Auto 67.1 % (45-73); Platelet Count 226 X10*3/uL (160-400); Red Blood Count 4.88 X10*6/uL (4.60-5.80); Red Cell Distribution Width 12.8 % (11.0-16.0); White Blood Count 12.2 X10*3/uL (4.8-10.8)
[2025-02-05 00:57] LABS: Amphetamine Screen Urine Not Detected (Not Detect); Barbiturates, Urine Not Detected (Not Detect); Benzodiazepines Screen Urine Not Detected (Not Detect); Buprenorphine Scr Not Detected (Not Detect); Cannabinoid Screen Urine POSITIVE (Not Detect); Cocaine Screen Urine Not Detected (Not Detect); Fentanyl, urine Not Detected (Not Detect); Methadone Screen, Urine Not Detected (Not Detect); Opiate Screen Urine Not Detected (Not Detect); Oxycodone Screen Urine Not Detected (Not Detect); Phencyclidine Screen Urine Not Detected (Not Detect)
[2025-02-05 01:09] LABS: Acetaminophen LAB < 3 mcg/mL (<30); Salicylate < 5.0 mg/dL (15-30)
[2025-02-05 01:09] LABS: Alanine Aminotransferase 47 U/L (0-40); Albumin Level 4.2 g/dL (3.5-5.0); Alkaline Phosphatase 76 U/L (39-117); Anion Gap 13 (12-20); Aspartate Amino Transferase 140 U/L (5-37); Bilirubin Total 0.4 mg/dL (0.0-1.0); Blood Urea Nitrogen 27 mg/dL (9-16); Carbon Dioxide 28 mmol/L (22-29); Chloride 107 mmol/L (96-108); Creatinine Clr Calc Pharmacy 146.2; Estimated Glomerular Filt Rate > 60; Ethanol < 10 mg/dL; Glucose Random 93 mg/dL (60-115); Potassium 3.7 mmol/L (3.3-5.1); Sodium 144 mmol/L (135-145); Total Protein 6.9 g/dL (6.5-8.0)
[2025-02-05 01:16] VITALS: BP 143/67; PULSE 79; RESP 17; TEMP 36.9; O2SAT 98
[2025-02-05 03:05] LABS: Valproate < 12.5 mcg/mL (50.0-100.0)
--- NOTE | 2025-02-05 06:11 | PC.NURSE ---
The pt is becoming increasingly more restless, pacing through the POC. He was requesting that staff provide him with his belongings because he feels better and wants to leave . Staff have attempted to sit with and converse with the patient to hear him out and to provide some additional support. Despite staff efforts the pt continued to request to leave stating that it was his right and we cannot hold him against his will as he came here on his own. This RN attempted to educate the patient on the current section [address] on his behalf and how leaving is not an option at this time. CARE Team and security to POD to speak with patient and to provide information regarding his current section and plan of care moving forward. Pt currently calm and cooperative, continued to intermittently move throughout the POD between common areas and his room.
--- OUTSIDE RECORDS SUMMARY | 2025-02-05 06:39 | XMS_ITS | Encounter Summary ---
Author Organization [facility] Address [address] [place] [phone] Phone Care Team Providers Care Supervisor Firearms Name Role Phone Unavailable Primary Care Provider Unavailabl e Encounter Details Date Type Department Care Team (Late st Contact Info) Description 03/15/2014 Documentation [facility] [place] [facility] [address] [place] [address] Family Medicine, Physician [address] [place] [address] Social History Tobacco Use Types Packs/Day Years Used Date Smoking Tobacco: Never Assessed Sex and Gender Information Value Date Recorded Sex Assigned at Not on file Legal Sex Male 4:57 PM EDT Gender Identity Not on file Sexual Orientation Not on file documented as of this encounter Plan of Treatment Not on file documented as of this encounter Visit Diagnoses Not on filedocumented in this encounter
[2025-02-05 07:23] VITALS: RESP 16
--- NOTE | 2025-02-05 07:23 | PC.NURSE ---
patient currently sleeping, rr equal/non labored rr 16, breakfast tray placed in patients room. pt will be medicated when he wakes
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
--- NOTE | 2025-02-05 07:38 | PC.NURSE ---
pt woke stated I feel much better now that I slept attempted to medicate but he refused stating I think that medication just makes me psychotic pt continued the conversation stating I feel like my mother is getting Alzheimers, my mother has been calling me by my dads name. pt inquired when he would be re-evaluated by the care team, this nurse told the patient that they will make their rounds at some point today. pt ate 100% of breakfast tray, plan of care ongoing.
[2025-02-05] MEDS: ARIPiprazole 10 MG TABLET PO (07:47)
--- NOTE | 2025-02-05 07:47 | PC.NURSE ---
pt came to the nurses station and stated I changed my mind, I am going to take my medication this nurse undid the not-given administration and administered the patients med.
[2025-02-05 07:56] VITALS: BP 132/66; PULSE 66; RESP 16; TEMP 36.6; O2SAT 100
--- NOTE | 2025-02-05 10:29 | PC.NURSE ---
pt requesting to speak with the care team, this nurse contacted care team- Gabby answered and stated she would speak with the patient.
--- NOTE | 2025-02-05 10:43 | PC.NURSE ---
patient pacing on unit repeating i want to go home, I want to go home, I was forced here pt awaiting care team to speak with him again.
--- NOTE | 2025-02-05 10:50 | MHC.EDTECH ---
Patient pacing the floor, voicing frustration at being here. This tech spoke with patient in attempt to deescalate. Patient aware on sect 12 and stated that he would like to go upstairs to M3 . Patient also stating that this tech and other staff on floor, have called him a traitor and are yelling at me and flipping me off . Patient then stated when he left that he would step in front of a car or train, I don't want to do this anymore, my family is to blame and this is falling on my shoulders. This tech made RN aware of statements. Patient currently speaking with care team.
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
[2025-02-05 15:43] VITALS: BP 136/65; PULSE 78; RESP 16; TEMP 36.9; O2SAT 98
[2025-02-05] MEDS: Melatonin 3 MG TABLET PO (20:21)
[2025-02-05] MEDS: Divalproex Sodium ER 500 MG TAB.ER.24H 1500 MG PO (20:21)
[2025-02-06 00:36] VITALS: BP 125/63; PULSE 64; RESP 16; TEMP 36.8; O2SAT 100
--- NOTE | 2025-02-06 07:42 | PC.NURSE ---
Assumed care of patient at 0645, patient appears to be in no apparent distress this am, ate breakfast, now showering, offering no complaints to this RN. Continue plan of care for IPLOC
[2025-02-06] MEDS: ARIPiprazole 10 MG TABLET PO (08:20)
--- NOTE | 2025-02-06 10:10 | PHA.MEDREC ---
Addendum entered by Richard Velazco PharmD 02/06/25 10:14: reviewed Original Note: Pharmacy Consult ? Medication Reconciliation Pharmacy has completed the medication reconciliation. Reviewed med rec done by nursing.
--- NOTE | 2025-02-06 14:08 | PC.NURSE ---
This RN spoke with patient's mother who reports she is concerned that he was discharged so soon after being admitted to the unit despite being there for a little over one week. She reports that his medications are not therapeutic and she cannot care for him like this
[2025-02-06 14:12] VITALS: BP 138/62; PULSE 68; RESP 16; TEMP 36.9; O2SAT 100
[2025-02-06] MEDS: Melatonin 3 MG TABLET PO (20:08)
[2025-02-06] MEDS: Divalproex Sodium ER 500 MG TAB.ER.24H 1500 MG PO (20:08)
[2025-02-06] MEDS: LORazepam 1 MG TABLET 2 MG PO (20:32)
--- NOTE | 2025-02-06 20:33 | PC.NURSE ---
patient expresses feeling very frustrated, wanting change had called 911 and needed phone turmned off
--- NOTE | 2025-02-07 | ECG_ITS ---
Test Reason : CHECK QTC Blood Pressure : */* mmHG Vent. Rate : 62 BPM Atrial Rate : 62 BPM P-R Int : 110 ms QRS Dur : 104 ms QT Int : 416 ms P-R-T Axes : -20 -52 21 degrees QTcB Int : 422 ms Sinus rhythm with short MS Incomplete right bundle branch block Left axis deviation Abnormal ECG No previous ECGs available Referred By: Juanita Fernandez Electronically Signed By: WYATT EID
--- NOTE | 2025-02-07 03:33 | PC.NURSE ---
from rajesh a/o/behavior send me to [facility]
[2025-02-07 06:07] VITALS: RESP 16
[2025-02-07 06:41] VITALS: BP 123/62; PULSE 56; RESP 16; TEMP 36.6; O2SAT 99
--- NOTE | 2025-02-07 07:29 | PC.NURSE ---
Assumed care of patient at 0645, patient appears to be in no apparent distress this am, ambulating around BH pod, took shower this am, calm and cooperative, pleasant with staff. Continue plan of care for IPLOC
[2025-02-07] MEDS: ARIPiprazole 10 MG TABLET PO (08:12)
[2025-02-07 11:13] LABS: Appearance Urine Clear; Color Urine Yellow; Glucose Urine UA Negative (Negative); Leukocyte Esterase Urine Negative (Negative); Nitrite Urine Negative (Negative); UMIC TRIGGER UACC YES; Urine Blood Trace (Negative); Urine Ketones Negative (Negative); Urine Protein Negative (Neg-Trace)
[2025-02-07 11:16] LABS: Bacteria Urine None Seen (None Seen); Hyaline Casts Urine 0-2 /LPF (0-2); RBC Urine 0-2 /HPF (0-2); Squamous Epithelial Cell Urine 0-2 /HPF (0-2); WBC Urine 0-5 /HPF (0-5)
[2025-02-07 13:10] VITALS: BP 126/72; PULSE 88; RESP 16; TEMP 36.2; O2SAT 96
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
[2025-02-07 20:15] VITALS: BP 123/73; PULSE 100; RESP 14; TEMP 36; O2SAT 97
[2025-02-07] MEDS: cloNIDine HCL 0.1 MG TABLET PO (21:09)
[2025-02-07] MEDS: Divalproex Sodium ER 250 MG TAB.ER.24H 1750 MG PO (21:09)
[2025-02-07] MEDS: Melatonin 3 MG TABLET PO (21:09)
[2025-02-08] MEDS: OLANZapine 2.5 MG TABLET PO ×2 (03:20→20:55)
[2025-02-08 08:09] VITALS: BP 111/57; PULSE 64; RESP 16; TEMP 36.7; O2SAT 99
[2025-02-08] MEDS: ARIPiprazole 10 MG TABLET PO (08:29)
--- NOTE | 2025-02-08 12:25 | HO.PSYCHPN ---
Subjective Subjective Date of Service: 02/08/25 Reason For Visit: anna Subjective Notes: Prajapati Warning Interim History: asking to leave. floridly psychotic, asserting people are trying to kill him, his dad himself is trying to kill him, someone stole his identity. states he is not manic and was just sleep deprived but he needs to leave today because there is an order that he attend a therapy appointment. states meds are working nicely. prajapati warning provided. per staff, resltess. slept about 5 hours. took zyprexa 2.5 mg at 0330. Mental Status Exam Mental Status Exam Narrative: adequately dressed and groomed. cooperative. no PMA/PMR. speech incr amount, nml rate, decr latency. thoughts linear and illogical. affect constricted, normo-intense, non-labile. mood not assessed. no SI/HI/AVH expressed. Diagnostics Vital Signs (24Hr): Vital Signs - 24 hr 02/07/25 13:10 02/07/25 20:15 02/08/25 08:09 Temperature 97.1 F 96.8 F 98.1 F Pulse Rate 88 100 64 Respiratory Rate 16 14 16 Blood Pressure 126/72 123/73 111/57 L Pulse Oximetry 96 97 99 Oxygen Delivery Method Room Air Room Air Room Air BMI result Body Mass Index 23.2 Labs 02/05/25 00:38 02/05/25 00:38 Labs: Laboratory Results - last 48 hr 02/07/25 11:03 Urine Color Yellow Urine Appearance Clear Urine pH 7.0 Ur Specific [place] 1.010 Urine Protein Negative Urine Glucose (UA) Negative Urine Ketones Negative Urine Blood Trace H Urine Nitrite Negative Ur Leukocyte Esterase Negative Urine RBC 0-2 Urine WBC 0-5 Ur Squamous Epith Cells 0-2 Urine Bacteria None Seen Hyaline Casts 0-2 Medications Medications Current Medications Acetaminophen (Acetaminophen 325 Mg Tablet) 650 mg PO Q6H PRN PRN Reason: Headache/Pain, Scale 1-10 Al Hydroxide/Mg Hydroxide (Magnesium Hydrox/Alum Hydrox 30 Ml Oral.Susp) 30 ml PO Q6H PRN PRN Reason: Heartburn/Nausea Aripiprazole (Aripiprazole 10 Mg Tablet) 10 mg PO DAILY [facility] Last Admin: 02/08/25 08:29 Dose: 10 mg Clonidine HCl (Clonidine Hcl 0.1 Mg Tablet) 0.1 mg PO Q4H PRN; Protocol PRN Reason: moderate anxiety Divalproex Sodium 250 mg/ (Divalproex Sodium 1,500 mg) 1,750 mg PO BEDTIME [facility] Magnesium Hydroxide (Milk Of Magnesia 30 Ml Oral.Susp) 30 ml PO DAILY PRN PRN Reason: Constipation Melatonin (Melatonin 3 Mg Tablet) 3 mg PO BEDTIME [facility] Last Admin: 02/07/25 21:09 Dose: 3 mg Nicotine Polacrilex (Nicotine Polacrilex 2 Mg Gum) 4 mg BUCCAL Q2H PRN PRN Reason: Nicotine Cravings Olanzapine (Olanzapine 2.5 Mg Tablet) 2.5 mg PO Q4H PRN PRN Reason: agitation Last Admin: 02/08/25 03:20 Dose: 2.5 mg Trazodone HCl (Trazodone Hcl 50 Mg Tablet) 50 mg PO BEDTIME MRX1 PRN PRN Reason: Insomnia Allergies Allergies Allergy/AdvReac Type Severity Reaction Status Date / Time ondansetron [From Zofran] AdvReac Anxiety Verified 02/05/25 00:25 Assessment & Plan Assessment & Plan (1) Autism: Status: Acute Code(s): F84.0 - Autistic disorder (2) Anna: Status: Acute Code(s): F30.9 - Manic episode, unspecified Plan 02/07: restart previous regimen but increase VPA to 1750 since level was sub-therapeutic at previous discharge on 1500 mg. 02/08: manic, floridly psychotic believing his father is trying to kill him, others are trying to kill him, someone stole his identity, there is a court order that he attend an upcoming therapy appointment. pressured. prajapati warning provided. continue current mgmt. T/C changing to more sedating anti-psychotic. Reason for continued inpatient stay Substantial Risk for: harm to self, harm to others and inability to function Time Spent With Patient Time: Total time managing care of this patient today __25__ minutes.
[2025-02-08 20:00] VITALS: BP 104/57; PULSE 96; RESP 16; TEMP 36.8; O2SAT 97
[2025-02-08] MEDS: DIVALPROEX SODIUM 1750 MG PO (20:54)
[2025-02-08] MEDS: Melatonin 3 MG TABLET PO (20:55)
[2025-02-09 08:00] VITALS: BP 106/57; PULSE 84; RESP 16; TEMP 36.3; O2SAT 99
[2025-02-09] MEDS: ARIPiprazole 10 MG TABLET PO (08:35)
--- NOTE | 2025-02-09 16:28 | P.PNPSI_ITS ---
Subjective Subjective Date of Service: 02/09/25 Reason For Visit: anna Interim History: arguing for discharge, informed he woul dnot be discharged and would instead be filed on tomorrow. per staff, 3 day up tomorrow. paranoid. med compliant. wants dc. thinks his parents are setting him up. some groups. called police to have wellness check on mom yesterday. slept 8 hours. Mental Status Exam Mental Status Exam Narrative: adequately dressed and groomed. cooperative. no PMA/PMR. speech incr amount, nml rate, decr latency. thoughts digressive and illogical. affect constricted, normo-intense, non-labile. mood not assessed. no SI/HI/AVH expressed. Diagnostics Vital Signs (24Hr): Vital Signs - 24 hr 02/08/25 20:00 02/09/25 08:00 Temperature 98.2 F 97.4 F Pulse Rate 96 84 Respiratory Rate 16 16 Blood Pressure 104/57 L 106/57 L Pulse Oximetry 97 99 Oxygen Delivery Method Room Air Room Air BMI result Body Mass Index 23.2 Labs 02/05/25 00:38 02/05/25 00:38 Medications Medications Current Medications Acetaminophen (Acetaminophen 325 Mg Tablet) 650 mg PO Q6H PRN PRN Reason: Headache/Pain, Scale 1-10 Al Hydroxide/Mg Hydroxide (Magnesium Hydrox/Alum Hydrox 30 Ml Oral.Susp) 30 ml PO Q6H PRN PRN Reason: Heartburn/Nausea Aripiprazole (Aripiprazole 10 Mg Tablet) 10 mg PO DAILY [facility] Last Admin: 02/09/25 08:35 Dose: 10 mg Clonidine HCl (Clonidine Hcl 0.1 Mg Tablet) 0.1 mg PO Q4H PRN; Protocol PRN Reason: moderate anxiety Divalproex Sodium 250 mg/ (Divalproex Sodium 1,500 mg) 1,750 mg PO BEDTIME [facility] Last Admin: 02/08/25 20:54 Dose: 1,750 mg Magnesium Hydroxide (Milk Of Magnesia 30 Ml Oral.Susp) 30 ml PO DAILY PRN PRN Reason: Constipation Melatonin (Melatonin 3 Mg Tablet) 3 mg PO BEDTIME [facility] Last Admin: 02/08/25 20:55 Dose: 3 mg Nicotine Polacrilex (Nicotine Polacrilex 2 Mg Gum) 4 mg BUCCAL Q2H PRN PRN Reason: Nicotine Cravings Olanzapine (Olanzapine 2.5 Mg Tablet) 2.5 mg PO Q4H PRN PRN Reason: agitation Last Admin: 02/08/25 20:55 Dose: 2.5 mg Trazodone HCl (Trazodone Hcl 50 Mg Tablet) 50 mg PO BEDTIME MRX1 PRN PRN Reason: Insomnia Allergies Allergies Allergy/AdvReac Type Severity Reaction Status Date / Time ondansetron [From Zofran] AdvReac Anxiety Verified 02/05/25 00:25 Assessment & Plan Assessment & Plan (1) Autism: Status: Acute Code(s): F84.0 - Autistic disorder (2) Anna: Status: Acute Code(s): F30.9 - Manic episode, unspecified Plan 02/07: restart previous regimen but increase VPA to 1750 since level was sub- therapeutic at previous discharge on 1500 mg. 02/08: manic, floridly psychotic believing his father is trying to kill him, others are trying to kill him, someone stole his identity, there is a court order that he attend an upcoming therapy appointment. pressured. pantoja warning provided. continue current mgmt. T/C changing to more sedating anti-psychotic. 02/09: no change in presentation. once again believes he is all better, nothing really wrong with him, and he is demanding discharge. informed we will be filing for commitment. continue current mgmt. Reason for continued inpatient stay Substantial Risk for: harm to self, harm to others, inability to function and rapid decompensation Time Spent With Patient Time: Total time managing care of this patient today __25__ minutes.
[2025-02-09 20:00] VITALS: BP 121/56; PULSE 90; RESP 16; TEMP 36.9; O2SAT 93
[2025-02-09] MEDS: Melatonin 3 MG TABLET PO (20:13)
[2025-02-09] MEDS: DIVALPROEX SODIUM 1750 MG PO (20:13)
[2025-02-09] MEDS: OLANZapine 2.5 MG TABLET PO (23:37)
[2025-02-10 08:00] VITALS: BP 137/63; PULSE 79; RESP 18; TEMP 36.3; O2SAT 98
[2025-02-10] MEDS: ARIPiprazole 10 MG TABLET PO (08:40)
--- NOTE | 2025-02-10 10:33 | HO.PSYCHPN ---
Subjective Subjective Date of Service: 02/10/25 Reason For Visit: anna Subjective Notes: Section 7 Healthcare Proxy: No Guardianship: No Medical Problems Affecting Mental Status: No Interim History: Will I go to custodial when they take me to court? Discussed process of Section 7 and goal of treatment-stabilization of sx of illness in hospital then return to his daily routine. Talked of his relationship with mother-believes she thinks he is ill due to his sexual identity. States she is doing a 30 day eviction. Discussed her illness and his belief that he has schizophrenia. Discussed independent living- I think our relationship would be stronger if we did not live together. Currently no housing options, however, discussed once sx are managed, options he has to begin to work on that goal. Reviewed his trauma history and his perceptions on the effect it has had upon his life to this point. In the milieu, pt with mood changes, indecisiveness, struggling with fresh air break limitations and needing strong limits. Medication Compliance: Yes Side effects from medications: No Attending Groups: Intermittent Review of Systems Acute medical concerns: No Review of Systems Review of Systems Denies today Mental Status Exam Mental Status Exam Patient Appearance: Appropriate Patient Orientation: Person, Place, Time and Situation Level of Consciousness: Alert Patient Behavior: Talkative, Suspicious, Resistive to Care (at times), Distractible and Good Eye Contact Mood Description: Constricted and Depressed Affect Description: Constricted Patient Cognition Impaired: No Ability to Follow Directions: Good Speech Pattern: Spontaneous Speech Memory Description: Intact Hallucinations: None (denies) Delusions: Paranoid Ideation and Present Perceptual Disturbances: Depersonalization Thought Process: Distracted and Rumination Thought Content: positive for Perseveration and positive for Suicidal Ideation (denies yet unsure some of the time he reports.) Depressive Symptoms: Increased Anxiety, Diff. Making Decisions, Increased Irritability, Feelings of Worthlessness, Hopelessness, Feelings of Guilt, Unhappiness, Low Self Esteem and Difficulty Concentrating Abnormal Motor Activity Signs and Symptoms: Restlessness Judgement: Poor Diagnostics Vital Signs (24Hr): Vital Signs - 24 hr 02/09/25 20:00 02/10/25 08:00 Temperature 98.5 F 97.3 F Pulse Rate 90 79 Respiratory Rate 16 18 Blood Pressure 121/56 L 137/63 Pulse Oximetry 93 98 Oxygen Delivery Method Room Air Room Air BMI result Body Mass Index 23.2 Labs 02/05/25 00:38 02/05/25 00:38 Medications Medications Current Medications Acetaminophen (Acetaminophen 325 Mg Tablet) 650 mg PO Q6H PRN PRN Reason: Headache/Pain, Scale 1-10 Al Hydroxide/Mg Hydroxide (Magnesium Hydrox/Alum Hydrox 30 Ml Oral.Susp) 30 ml PO Q6H PRN PRN Reason: Heartburn/Nausea Aripiprazole (Aripiprazole 10 Mg Tablet) 10 mg PO DAILY [facility] Last Admin: 02/10/25 08:40 Dose: 10 mg Clonidine HCl (Clonidine Hcl 0.1 Mg Tablet) 0.1 mg PO Q4H PRN; Protocol PRN Reason: moderate anxiety Divalproex Sodium 250 mg/ (Divalproex Sodium 1,500 mg) 1,750 mg PO BEDTIME [facility] Last Admin: 02/09/25 20:13 Dose: 1,750 mg Magnesium Hydroxide (Milk Of Magnesia 30 Ml Oral.Susp) 30 ml PO DAILY PRN PRN Reason: Constipation Melatonin (Melatonin 3 Mg Tablet) 3 mg PO BEDTIME [facility] Last Admin: 02/09/25 20:13 Dose: 3 mg Nicotine Polacrilex (Nicotine Polacrilex 2 Mg Gum) 4 mg BUCCAL Q2H PRN PRN Reason: Nicotine Cravings Olanzapine (Olanzapine 2.5 Mg Tablet) 2.5 mg PO Q4H PRN PRN Reason: agitation Last Admin: 02/09/25 23:37 Dose: 2.5 mg Trazodone HCl (Trazodone Hcl 50 Mg Tablet) 50 mg PO BEDTIME MRX1 PRN PRN Reason: Insomnia Allergies Allergies Allergy/AdvReac Type Severity Reaction Status Date / Time ondansetron [From Zofran] AdvReac Anxiety Verified 02/05/25 00:25 Assessment & Plan Assessment & Plan (1) Autism: Status: Acute Code(s): F84.0 - Autistic disorder (2) Anna: Status: Acute Code(s): F30.9 - Manic episode, unspecified Plan 02/07: restart previous regimen but increase VPA to 1750 since level was sub-therapeutic at previous discharge on 1500 mg. 02/08: manic, floridly psychotic believing his father is trying to kill him, others are trying to kill him, someone stole his identity, there is a court order that he attend an upcoming therapy appointment. pressured. pantoja warning provided. continue current mgmt. T/C changing to more sedating anti-psychotic. 02/09: no change in presentation. once again believes he is all better, nothing really wrong with him, and he is demanding discharge. informed we will be filing for commitment. continue current mgmt. 02/10: Continue tx. Reason for continued inpatient stay Substantial Risk for: rapid decompensation Time Spent With Patient Time: Total time managing care of this patient today ____ minutes.
[2025-02-10 11:34] VITALS: BMI 23.4
[2025-02-10] MEDS: OLANZapine 2.5 MG TABLET PO (16:09)
[2025-02-10 20:03] VITALS: BP 121/64; PULSE 94; RESP 16; TEMP 36.8; O2SAT 97
[2025-02-10] MEDS: Melatonin 3 MG TABLET PO (20:46)
[2025-02-10] MEDS: DIVALPROEX SODIUM 1750 MG PO (20:46)
[2025-02-11 08:00] VITALS: BP 136/64; PULSE 90; RESP 18; TEMP 36.4; O2SAT 97
[2025-02-11] MEDS: ARIPiprazole 10 MG TABLET PO (08:52)
--- NOTE | 2025-02-11 11:46 | P.PNPSI_ITS ---
Subjective Subjective Date of Service: 02/11/25 Reason For Visit: anna Subjective Notes: Section 7 Healthcare Proxy: No Guardianship: No Medical Problems Affecting Mental Status: No Interim History: I do believe that all of you are trying to help me. I understand that you are going to court to help me Do you think my mom knows I love her? 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 I realize these are dreams but they make me feel better when I think of working toward a goal with these in mind. Reports regime is tolerated. Denies SI, HI, AH, VH. States he wants to work with the team to improve his mental health. Team reports pt continues to have changes in his perspective/goals precipitously. Medication Compliance: Yes Side effects from medications: No Attending Groups: Intermittent Review of Systems Acute medical concerns: No Mental Status Exam Mental Status Exam Patient Appearance: Appropriate Patient Orientation: Person, Place, Time and Situation Level of Consciousness: Alert Patient Behavior: Talkative, Distractible and Good Eye Contact Mood Description: Calm and Constricted Affect Description: Calm and Constricted Patient Cognition Impaired: No Ability to Follow Directions: Good Speech Pattern: Spontaneous Speech Memory Description: Intact Hallucinations: None (denies) Delusions: Paranoid Ideation and Present Perceptual Disturbances: Depersonalization Thought Process: Distracted and Rumination Thought Content: positive for Perseveration and positive for Suicidal Ideation (denies yet unsure some of the time he reports.) Depressive Symptoms: Increased Anxiety, Diff. Making Decisions, Feelings of Worthlessness, Hopelessness, Feelings of Guilt, Unhappiness, Low Self Esteem and Difficulty Concentrating Abnormal Motor Activity Signs and Symptoms: Restlessness Judgement: Poor Diagnostics Vital Signs (24Hr): Vital Signs - 24 hr 02/10/25 20:03 02/11/25 08:00 Temperature 98.3 F 97.5 F Pulse Rate 94 90 Respiratory Rate 16 18 Blood Pressure 121/64 136/64 Pulse Oximetry 97 97 Oxygen Delivery Method Room Air Room Air BMI result Body Mass Index 23.4 Labs 02/05/25 00:38 02/05/25 00:38 Medications Medications Current Medications Acetaminophen (Acetaminophen 325 Mg Tablet) 650 mg PO Q6H PRN PRN Reason: Headache/Pain, Scale 1-10 Al Hydroxide/Mg Hydroxide (Magnesium Hydrox/Alum Hydrox 30 Ml Oral.Susp) 30 ml PO Q6H PRN PRN Reason: Heartburn/Nausea Aripiprazole (Aripiprazole 10 Mg Tablet) 10 mg PO DAILY [facility] Last Admin: 02/11/25 08:52 Dose: 10 mg Clonidine HCl (Clonidine Hcl 0.1 Mg Tablet) 0.1 mg PO Q4H PRN; Protocol PRN Reason: moderate anxiety Divalproex Sodium 250 mg/ (Divalproex Sodium 1,500 mg) 1,750 mg PO BEDTIME [facility] Last Admin: 02/10/25 20:46 Dose: 1,750 mg Magnesium Hydroxide (Milk Of Magnesia 30 Ml Oral.Susp) 30 ml PO DAILY PRN PRN Reason: Constipation Melatonin (Melatonin 3 Mg Tablet) 3 mg PO BEDTIME [facility] Last Admin: 02/10/25 20:46 Dose: 3 mg Nicotine Polacrilex (Nicotine Polacrilex 2 Mg Gum) 4 mg BUCCAL Q2H PRN PRN Reason: Nicotine Cravings Olanzapine (Olanzapine 2.5 Mg Tablet) 2.5 mg PO Q4H PRN PRN Reason: agitation Last Admin: 02/10/25 16:09 Dose: 2.5 mg Trazodone HCl (Trazodone Hcl 50 Mg Tablet) 50 mg PO BEDTIME MRX1 PRN PRN Reason: Insomnia Allergies Allergies Allergy/AdvReac Type Severity Reaction Status Date / Time ondansetron [From Zofran] AdvReac Anxiety Verified 02/05/25 00:25 Assessment & Plan Assessment & Plan (1) Autism: Status: Acute Code(s): F84.0 - Autistic disorder (2) Anna: Status: Acute Code(s): F30.9 - Manic episode, unspecified Plan 02/07: restart previous regimen but increase VPA to 1750 since level was sub- therapeutic at previous discharge on 1500 mg. 02/08: manic, floridly psychotic believing his father is trying to kill him, others are trying to kill him, someone stole his identity, there is a court order that he attend an upcoming therapy appointment. pressured. pantoja warning provided. continue current mgmt. T/C changing to more sedating anti-psychotic. 02/09: no change in presentation. once again believes he is all better, nothing really wrong with him, and he is demanding discharge. informed we will be filing for commitment. continue current mgmt. 02/10: Continue tx. 02/11: Valproate level Continue tx Reason for continued inpatient stay Substantial Risk for: rapid decompensation Time Spent With Patient Time: Total time managing care of this patient today ____ minutes.
[2025-02-11 20:00] VITALS: BP 121/70; PULSE 90; RESP 16; TEMP 36.7; O2SAT 98
[2025-02-11] MEDS: DIVALPROEX SODIUM 1750 MG PO (20:38)
[2025-02-11] MEDS: Melatonin 3 MG TABLET PO (20:49)
[2025-02-12 08:00] VITALS: BP 120/66; PULSE 75; RESP 16; TEMP 36.7; O2SAT 98
[2025-02-12] MEDS: ARIPiprazole 10 MG TABLET PO (08:22)
[2025-02-12 08:46] LABS: Valproate 67.7 mcg/mL (50.0-100.0)
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
[2025-02-12 19:58] VITALS: BP 133/64; PULSE 88; RESP 16; TEMP 36.7; O2SAT 98
[2025-02-12] MEDS: Melatonin 3 MG TABLET PO (20:27)
[2025-02-12] MEDS: DIVALPROEX SODIUM 1750 MG PO (20:27)
[2025-02-13 08:00] VITALS: BP 110/62; PULSE 77; RESP 16; TEMP 36.4; O2SAT 98
[2025-02-13] MEDS: ARIPiprazole 10 MG TABLET PO (08:16)
--- NOTE | 2025-02-13 16:40 | HO.PSYCHPN ---
Subjective Subjective Date of Service: 02/13/25 Reason For Visit: anna Interim History: calm, cooperative, pleasant. reports he is feeling better, for which he expresses gratitude. reports he is attending groups, feeling well, and feeling myself again. does assert he is here bcse of his mother's mental illness and maybe some PTSD and anger issues. educates pt about his Dx of anna and the need to take medications. per staff, court . pacing, keeping to self. eves visible. taking meds. slept 8 hours. Mental Status Exam Mental Status Exam Narrative: adequately dressed and groomed. cooperative. no PMA/PMR. speech incr amount, nml rate, latency. thoughts less digressive, generally logical. affect constricted, normo-intense, non-labile. mood improved. no SI/HI/AVH expressed. Diagnostics Vital Signs (24Hr): Vital Signs - 24 hr 02/12/25 19:58 02/13/25 08:00 Temperature 98.1 F 97.6 F Pulse Rate 88 77 Respiratory Rate 16 16 Blood Pressure 133/64 110/62 Pulse Oximetry 98 98 Oxygen Delivery Method Room Air Room Air BMI result Body Mass Index 23.4 Labs 02/05/25 00:38 02/05/25 00:38 Labs: Laboratory Results - last 48 hr 02/12/25 08:07 Valproic Acid 67.7 Medications Medications Current Medications Acetaminophen (Acetaminophen 325 Mg Tablet) 650 mg PO Q6H PRN PRN Reason: Headache/Pain, Scale 1-10 Al Hydroxide/Mg Hydroxide (Magnesium Hydrox/Alum Hydrox 30 Ml Oral.Susp) 30 ml PO Q6H PRN PRN Reason: Heartburn/Nausea Aripiprazole (Aripiprazole 10 Mg Tablet) 10 mg PO DAILY [facility] Last Admin: 02/13/25 08:16 Dose: 10 mg Clonidine HCl (Clonidine Hcl 0.1 Mg Tablet) 0.1 mg PO Q4H PRN; Protocol PRN Reason: moderate anxiety Divalproex Sodium 250 mg/ (Divalproex Sodium 1,500 mg) 1,750 mg PO BEDTIME [facility] Last Admin: 02/12/25 20:27 Dose: 1,750 mg Magnesium Hydroxide (Milk Of Magnesia 30 Ml Oral.Susp) 30 ml PO DAILY PRN PRN Reason: Constipation Melatonin (Melatonin 3 Mg Tablet) 3 mg PO BEDTIME [facility] Last Admin: 02/12/25 20:27 Dose: 3 mg Nicotine Polacrilex (Nicotine Polacrilex 2 Mg Gum) 4 mg BUCCAL Q2H PRN PRN Reason: Nicotine Cravings Olanzapine (Olanzapine 2.5 Mg Tablet) 2.5 mg PO Q4H PRN PRN Reason: agitation Last Admin: 02/10/25 16:09 Dose: 2.5 mg Trazodone HCl (Trazodone Hcl 50 Mg Tablet) 50 mg PO BEDTIME MRX1 PRN PRN Reason: Insomnia Allergies Allergies Allergy/AdvReac Type Severity Reaction Status Date / Time ondansetron [From Zofran] AdvReac Anxiety Verified 02/05/25 00:25 Assessment & Plan Assessment & Plan (1) Autism: Status: Acute Code(s): F84.0 - Autistic disorder (2) Anna: Status: Acute Code(s): F30.9 - Manic episode, unspecified Plan 02/07: restart previous regimen but increase VPA to 1750 since level was sub-therapeutic at previous discharge on 1500 mg. 02/08: manic, floridly psychotic believing his father is trying to kill him, others are trying to kill him, someone stole his identity, there is a court order that he attend an upcoming therapy appointment. pressured. pantoja warning provided. continue current mgmt. T/C changing to more sedating anti-psychotic. 02/09: no change in presentation. once again believes he is all better, nothing really wrong with him, and he is demanding discharge. informed we will be filing for commitment. continue current mgmt. 02/10: Continue tx. 02/11: Valproate level Continue tx 02/12: check VPA level tomorrow night. feeling improved. less pressured and less focused on discharge. continue current mgmt. 02/13: feeling [him]self again. slept well. taking meds. continue current mgmt. check labs tonight. Reason for continued inpatient stay Substantial Risk for: rapid decompensation Time Spent With Patient Time: Total time managing care of this patient today ____ minutes.
[2025-02-13 20:00] VITALS: BP 126/62; PULSE 71; RESP 15; TEMP 37.1; O2SAT 97
[2025-02-13 20:34] LABS: MANUAL DIFF FLAG NO
[2025-02-13 20:41] LABS: Basophils Absolute Auto 0.1 X10*3/uL (0.0-0.2); Basophils Percent Auto 0.9 % (0-2); Eosinophils Absolute Auto 0.2 X10*3/uL (0.0-0.4); Eosinophils Percent Auto 1.6 % (0-4); Hematocrit 46.3 % (42.0-52.0); Hemoglobin 15.5 g/dl (14.0-18.0); Imm Gran Abs Auto 0.06 X10*3/uL (0.00-0.03); Imm Gran Pct Auto 0.5 % (0.0-0.4); Lymphocytes Absolute Auto 2.3 X10*3/uL (1.2-4.9); Lymphocytes Percent Auto 20.1 % (20-40); Mean Corpuscular HGB Conc 33.5 g/dl (31.0-36.0); Mean Corpuscular Volume 89.6 fL (80.0-98.0); Mean Platelet Volume 8.9 fL (9.4-12.4); Monocytes Percent Auto 8.5 % (2-11); Neutrophils Absolute Auto 7.7 x10*3/uL (2.0-8.3); Neutrophils Percent Auto 68.4 % (45-73); Platelet Count 274 X10*3/uL (160-400); Red Blood Count 5.17 X10*6/uL (4.60-5.80); Red Cell Distribution Width 12.6 % (11.0-16.0); White Blood Count 11.2 X10*3/uL (4.8-10.8)
[2025-02-13 20:51] LABS: Valproate 30.2 mcg/mL (50.0-100.0)
[2025-02-13 20:53] LABS: Alanine Aminotransferase 45 U/L (0-40); Albumin Level 4.4 g/dL (3.5-5.0); Alkaline Phosphatase 73 U/L (39-117); Anion Gap 10 (12-20); Aspartate Amino Transferase 32 U/L (5-37); Bilirubin Direct < 0.2 mg/dL (0.0-0.5); Bilirubin Total 0.2 mg/dL (0.0-1.0); Blood Urea Nitrogen 23 mg/dL (9-16); Calcium 9.3 mg/dL (8.4-10.2); Carbon Dioxide 30 mmol/L (22-29); Chloride 104 mmol/L (96-108); Estimated Glomerular Filt Rate > 60; Glucose Random 89 mg/dL (60-115); Potassium 4.4 mmol/L (3.3-5.1); Sodium 140 mmol/L (135-145); Total Protein 7.4 g/dL (6.5-8.0)
[2025-02-13] MEDS: DIVALPROEX SODIUM 1750 MG PO (21:08)
[2025-02-13] MEDS: Melatonin 3 MG TABLET PO (21:08)
[2025-02-14 07:15] VITALS: BP 120/59; PULSE 83; RESP 16; TEMP 36.9; O2SAT 97
[2025-02-14] MEDS: ARIPiprazole 10 MG TABLET PO (08:16)
[2025-02-14] MEDS: ARIPiprazole 5 MG TABLET PO (10:04)
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
[2025-02-14 20:00] VITALS: BP 113/63; PULSE 89; RESP 14; TEMP 36.9; O2SAT 96
[2025-02-14] MEDS: Divalproex Sodium ER 500 MG TAB.ER.24H 2000 MG PO (20:57)
[2025-02-14] MEDS: Melatonin 3 MG TABLET PO (20:58)
[2025-02-15 07:53] VITALS: BP 101/61; PULSE 68; RESP 16; TEMP 36.6; O2SAT 99
[2025-02-15] MEDS: ARIPiprazole 15 MG TABLET PO (08:27)
[2025-02-15] MEDS: OLANZapine 2.5 MG TABLET PO (16:03)
[2025-02-15 20:00] VITALS: BP 122/80; PULSE 100; RESP 16; TEMP 36.4; O2SAT 99
--- NOTE | 2025-02-15 20:13 | HO.PSYCHPN ---
Subjective Subjective Date of Service: 02/15/25 Reason For Visit: anna Interim History: calm, cooperative, pleasant. some AH. meds helping. per staff, anxious, flat. perseverative on discharge. would rather go to custodial than be in hospital. Mental Status Exam Mental Status Exam Narrative: adequately dressed and groomed. cooperative. no PMA/PMR. speech nml amount, nml rate, latency. thoughts less digressive, generally logical. affect constricted, normo-intense, non-labile. mood improved. no SI/HI/VH expressed. some AH. Diagnostics Vital Signs (24Hr): Vital Signs - 24 hr 02/15/25 07:53 Temperature 97.8 F Pulse Rate 68 Respiratory Rate 16 Blood Pressure 101/61 Pulse Oximetry 99 Oxygen Delivery Method Room Air BMI result Body Mass Index 23.4 Labs 02/13/25 20:20 02/13/25 20:20 Labs: Laboratory Results - last 48 hr 02/13/25 20:20 WBC 11.2 H RBC 5.17 Hgb 15.5 Hct 46.3 MCV 89.6 MCH 30.0 MCHC 33.5 RDW 12.6 Plt Count 274 MPV 8.9 L Immature Gran % (Auto) 0.5 H Neut % (Auto) 68.4 Lymph % (Auto) 20.1 [place] % (Auto) 8.5 Eos % (Auto) 1.6 Baso % (Auto) 0.9 Lymph # (Auto) 2.3 [place] # (Auto) 1.0 Eos # (Auto) 0.2 Baso # (Auto) 0.1 Abs Immat Gran (auto) 0.06 H Absolute Neuts (auto) 7.7 Absolute Nucleated RBC 0.000 Nucleated RBC % (auto) 0.0 Sodium 140 Potassium 4.4 Chloride 104 Carbon Dioxide 30 H Anion Gap 10 L BUN 23 H Creatinine 0.88 Estim Creat Clear Calc 153.0 Estimated GFR > 60 Random Glucose 89 Calcium 9.3 Magnesium Cancelled Total Bilirubin 0.2 Direct Bilirubin < 0.2 AST 32 ALT 45 H Alkaline Phosphatase 73 Troponin I High Sens Cancelled Total Protein 7.4 Albumin 4.4 Valproic Acid 30.2 L Medications Medications Current Medications Acetaminophen (Acetaminophen 325 Mg Tablet) 650 mg PO Q6H PRN PRN Reason: Headache/Pain, Scale 1-10 Al Hydroxide/Mg Hydroxide (Magnesium Hydrox/Alum Hydrox 30 Ml Oral.Susp) 30 ml PO Q6H PRN PRN Reason: Heartburn/Nausea Aripiprazole (Aripiprazole 15 Mg Tablet) 15 mg PO DAILY [facility] Last Admin: 02/15/25 08:27 Dose: 15 mg Clonidine HCl (Clonidine Hcl 0.1 Mg Tablet) 0.1 mg PO Q4H PRN; Protocol PRN Reason: moderate anxiety Divalproex Sodium (Divalproex Sodium Er 500 Mg Tab.Er.24h) 2,000 mg PO BEDTIME [facility] Last Admin: 02/14/25 20:57 Dose: 2,000 mg Magnesium Hydroxide (Milk Of Magnesia 30 Ml Oral.Susp) 30 ml PO DAILY PRN PRN Reason: Constipation Melatonin (Melatonin 3 Mg Tablet) 3 mg PO BEDTIME [facility] Last Admin: 02/14/25 20:58 Dose: 3 mg Nicotine Polacrilex (Nicotine Polacrilex 2 Mg Gum) 4 mg BUCCAL Q2H PRN PRN Reason: Nicotine Cravings Olanzapine (Olanzapine 2.5 Mg Tablet) 2.5 mg PO Q4H PRN PRN Reason: agitation Last Admin: 02/15/25 16:03 Dose: 2.5 mg Trazodone HCl (Trazodone Hcl 50 Mg Tablet) 50 mg PO BEDTIME MRX1 PRN PRN Reason: Insomnia Allergies Allergies Allergy/AdvReac Type Severity Reaction Status Date / Time ondansetron [From Zofran] AdvReac Anxiety Verified 02/05/25 00:25 Assessment & Plan Assessment & Plan (1) Autism: Status: Acute Code(s): F84.0 - Autistic disorder (2) Anna: Status: Acute Code(s): F30.9 - Manic episode, unspecified Plan 02/07: restart previous regimen but increase VPA to 1750 since level was sub-therapeutic at previous discharge on 1500 mg. 02/08: manic, floridly psychotic believing his father is trying to kill him, others are trying to kill him, someone stole his identity, there is a court order that he attend an upcoming therapy appointment. pressured. pantoja warning provided. continue current mgmt. T/C changing to more sedating anti-psychotic. 02/09: no change in presentation. once again believes he is all better, nothing really wrong with him, and he is demanding discharge. informed we will be filing for commitment. continue current mgmt. 02/10: Continue tx. 02/11: Valproate level Continue tx 02/12: check VPA level tomorrow night. feeling improved. less pressured and less focused on discharge. continue current mgmt. 02/13: feeling [him]self again. slept well. taking meds. continue current mgmt. check labs tonight. 02/14: VPA 30, labs otherwise reassuring. increase VPA dosing to 2000 mg. still some voices: increase abilify to 15 mg daily. otherwise continue current mgmt. 02/15: still some AH, but meds helping. continue current mgmt. Reason for continued inpatient stay Substantial Risk for: harm to self, harm to others, inability to function and rapid decompensation Time Spent With Patient Time: Total time managing care of this patient today _25___ minutes.
[2025-02-15] MEDS: Melatonin 3 MG TABLET PO (20:55)
[2025-02-15] MEDS: Divalproex Sodium ER 500 MG TAB.ER.24H 2000 MG PO (20:56)
[2025-02-16] MEDS: OLANZapine 2.5 MG TABLET PO ×3 (03:43→19:24)
[2025-02-16 08:00] VITALS: BP 122/65; PULSE 74; RESP 16; TEMP 36.4; O2SAT 96
[2025-02-16] MEDS: ARIPiprazole 15 MG TABLET PO (08:47)
--- NOTE | 2025-02-16 13:41 | P.PNPSI_ITS ---
Subjective Subjective Date of Service: 02/16/25 Reason For Visit: anna Interim History: Pacing unit hallway while listening to unit headphones. Pt reports feeling okay today; focused on his diagnosis. Pt stated, I think I might have paranoid schizophrenia. I hear and see things sometimes. I also have lots of PTSD. They tell me I'm bipolar . Pt reports he just wants to go home and see my family ; does not want to be in hospital. He reports negative self talk but, zyprexa is helpful. per nursing, slept 7 hours. denies SI/HI/VH. Continue current tx plan. Medication Compliance: Yes Side effects from medications: No Attending Groups: Intermittent Mental Status Exam Mental Status Exam Patient Appearance: Appropriate Patient Orientation: Person, Place, Time and Situation Level of Consciousness: Awake and Alert Patient Behavior: Appropriate and Cooperative Mood Description: Calm Affect Description: Blunted Ability to Follow Directions: Good Speech Pattern: Clear and Appropriate Memory Description: Intact Hallucinations: Auditory Thought Process: Intact Thought Content: positive for Intact Diagnostics Vital Signs (24Hr): Vital Signs - 24 hr 02/15/25 20:00 02/16/25 08:00 Temperature 97.5 F 97.5 F Pulse Rate 100 74 Respiratory Rate 16 16 Blood Pressure 122/80 122/65 Pulse Oximetry 99 96 Oxygen Delivery Method Room Air Room Air BMI result Body Mass Index 23.4 Labs 02/13/25 20:20 02/13/25 20:20 Medications Medications Current Medications Acetaminophen (Acetaminophen 325 Mg Tablet) 650 mg PO Q6H PRN PRN Reason: Headache/Pain, Scale 1-10 Al Hydroxide/Mg Hydroxide (Magnesium Hydrox/Alum Hydrox 30 Ml Oral.Susp) 30 ml PO Q6H PRN PRN Reason: Heartburn/Nausea Aripiprazole (Aripiprazole 15 Mg Tablet) 15 mg PO DAILY [facility] Last Admin: 02/16/25 08:47 Dose: 15 mg Clonidine HCl (Clonidine Hcl 0.1 Mg Tablet) 0.1 mg PO Q4H PRN; Protocol PRN Reason: moderate anxiety Divalproex Sodium (Divalproex Sodium Er 500 Mg Tab.Er.24h) 2,000 mg PO BEDTIME [facility] Last Admin: 02/15/25 20:56 Dose: 2,000 mg Magnesium Hydroxide (Milk Of Magnesia 30 Ml Oral.Susp) 30 ml PO DAILY PRN PRN Reason: Constipation Melatonin (Melatonin 3 Mg Tablet) 3 mg PO BEDTIME [facility] Last Admin: 02/15/25 20:55 Dose: 3 mg Nicotine Polacrilex (Nicotine Polacrilex 2 Mg Gum) 4 mg BUCCAL Q2H PRN PRN Reason: Nicotine Cravings Olanzapine (Olanzapine 2.5 Mg Tablet) 2.5 mg PO Q4H PRN PRN Reason: agitation Last Admin: 02/16/25 10:15 Dose: 2.5 mg Trazodone HCl (Trazodone Hcl 50 Mg Tablet) 50 mg PO BEDTIME MRX1 PRN PRN Reason: Insomnia Allergies Allergies Allergy/AdvReac Type Severity Reaction Status Date / Time ondansetron [From Zofran] AdvReac Anxiety Verified 02/05/25 00:25 Assessment & Plan Assessment & Plan (1) Autism: Status: Acute Code(s): F84.0 - Autistic disorder (2) Anna: Status: Acute Code(s): F30.9 - Manic episode, unspecified Plan 02/07: restart previous regimen but increase VPA to 1750 since level was sub- therapeutic at previous discharge on 1500 mg. 02/08: manic, floridly psychotic believing his father is trying to kill him, others are trying to kill him, someone stole his identity, there is a court order that he attend an upcoming therapy appointment. pressured. pantoja warning provided. continue current mgmt. T/C changing to more sedating anti-psychotic. 02/09: no change in presentation. once again believes he is all better, nothing really wrong with him, and he is demanding discharge. informed we will be filing for commitment. continue current mgmt. 02/10: Continue tx. 02/11: Valproate level Continue tx 02/12: check VPA level tomorrow night. feeling improved. less pressured and less focused on discharge. continue current mgmt. 02/13: feeling [him]self again. slept well. taking meds. continue current mgmt. check labs tonight. 02/14: VPA 30, labs otherwise reassuring. increase VPA dosing to 2000 mg. still some voices: increase abilify to 15 mg daily. otherwise continue current mgmt. 02/15: still some AH, but meds helping. continue current mgmt. 02/16: Pacing unit hallway while listening to unit headphones. Pt reports feeling okay today; focused on his diagnosis. Pt stated, I think I might have paranoid schizophrenia. I hear and see things sometimes. I also have lots of PTSD. They tell me I'm bipolar . Pt reports he just wants to go home and see my family ; does not want to be in hospital. He reports negative self talk but, zyprexa is helpful. per nursing, slept 7 hours. denies SI/HI/VH. Continue current tx plan. Patient educated on: diagnosis and medication risk/benefits Reason for continued inpatient stay Substantial Risk for: med/psych decompensation Time Spent With Patient Time: Total time managing care of this patient today _20___ minutes.
[2025-02-16 16:25] LABS: Ammonia 47 umol/L (13-55)
[2025-02-16 16:30] LABS: Valproate 61.2 mcg/mL (50.0-100.0)
[2025-02-16 16:34] LABS: Alanine Aminotransferase 38 U/L (0-40); Albumin Level 4.2 g/dL (3.5-5.0); Alkaline Phosphatase 71 U/L (39-117); Aspartate Amino Transferase 29 U/L (5-37); Bilirubin Direct 0.1 mg/dL (0.0-0.5); Bilirubin Total 0.3 mg/dL (0.0-1.0); Total Protein 7.3 g/dL (6.5-8.0)
[2025-02-16 20:00] VITALS: BP 117/60; PULSE 102; RESP 16; TEMP 36.8; O2SAT 96
[2025-02-16] MEDS: Melatonin 3 MG TABLET PO (20:38)
[2025-02-16] MEDS: Divalproex Sodium ER 500 MG TAB.ER.24H 2000 MG PO (20:39)
[2025-02-17] MEDS: OLANZapine 2.5 MG TABLET PO ×2 (02:18→08:33)
[2025-02-17 07:00] VITALS: BMI 24.1
[2025-02-17 08:00] VITALS: BP 133/58; PULSE 101; TEMP 36.6; O2SAT 95
[2025-02-17] MEDS: ARIPiprazole 15 MG TABLET PO (08:33)
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
== END 2025-02-17 12:14 | disposition home or self-care (01) | DRG 753 ==
LOC: HO.ED 02-06 20:07 → HO.PADLT16 02-07 11:51
PROVIDERS: Clinical Nurse Specialist Psychiatric/Mental Health, Adult; Nurse Practitioner Family; Admitting Provider Psychiatry & Neurology Psychiatry; Emergency Provider Emergency Medicine; Visit Provider Psychiatry & Neurology Psychiatry
DX: F31.9 Bipolar disorder, unspecified (principal); F17.210 Nicotine dependence, cigarettes, uncomplicated; F84.0 Autistic disorder; Z71.6 Tobacco abuse counseling; Z79.899 Other long term (current) drug therapy
CPT/HCPCS: 36415; 80048; 80053; 80076; 80143; 80164; 80179; 80307; 81001; 82140; 85025; 93005; 99285; S9485

== ENCOUNTER → 2025-02-07 09:33 | Outpatient (BNV) | payer MEDICAID, SELFPAY | PROVIDERS: Admitting Provider Psychiatry & Neurology Psychiatry; Emergency Provider Emergency Medicine; Visit Provider Internal Medicine | DX: I45.10 Unspecified right bundle-branch block (principal) | CPT/HCPCS: 93010 ==

== ENCOUNTER → 2025-02-07 11:30 | Outpatient (BNV) | payer OTHER, SELFPAY | PROVIDERS: Admitting Provider Psychiatry & Neurology Psychiatry; Emergency Provider Emergency Medicine; Visit Provider Psychiatry & Neurology Psychiatry | DX: F30.9 Manic episode, unspecified (principal); F84.0 Autistic disorder | CPT/HCPCS: 99231; 99232; 99233; 99499 ==

== ENCOUNTER 2025-02-22 09:45 | Outpatient (RCR) | payer OTHER, SELFPAY ==
--- NOTE | 2025-02-21 16:03 | HO.PHP ---
[facility] staff member followed up with Chandler due to him not being present for the last group of the day. Chandler was expressing frustration due to getting into an argument with his mother. Chandler mentioned he just lost his job and is going to lose his car. Chandler reported thoughts of SI with a strong intent. When asked if he has a plan he said not really just that he would like to make it look like an accident with his car. When PHP staff member if he has plans on acting on this tonight he said potentially, not really. Chandler disclosed that he wants this nightmare to end and he doesn't understand why his friends don't talk to him anymore. PHP staff member asked what is stopping him from acting on those thoughts he said his friends. PHP staff member explored how we can keep him safe he said that he doesn't feel safe because of his mother. Chandler then began talking about his concerns regarding his mother but noted that no one believes him. Chandler said that the clinician called at the perfect time because he needed to process this. Chandler then noted if you were to ask me if I'm suicidal now, it's a no. Chandler expressed that his mother is the biggest trigger for him and when he is away from her he does much better. [facility] staff member was receptive and noted that she is going to speak with the team to figure out how best to support him. Chandler disclosed that he does not need support and he just needed to process this situation. Chandler voiced that tomorrow he has a therapy appointment at 10 AM so he won't be able to get to the program till noon. [facility] staff member asked Chandler if he could contact [facility] to see if the appointment will still be held since she is aware when a pt. is in program, they typically wait until the program is over to meet with them. Chandler said that is going to be a problem because he needs to meet with his therapist and also wants to come here. Then he expressed that he could come here tomorrow and will talk with his therapist tonight or tomorrow morning. [facility] staff member notified the police due to Chandler not being clear around his suicidal ideation with possible plan and intent. [facility] spoke to leelee number [id number] through [facility] dispatch at . [facility] staff member asked if a wellness check could be performed due to a pt. making suicidal ideation comments that appeared unclear. Badge number [id number] collected additional demographic information from the clinician and noted that they will be going out with the crisis team. [facility] staff member was receptive. [facility] staff member received a phone call from Candace through Crisis asking for further information. PHP staff member informed her of what was noted above. Candace expressed that they are very familiar with him and it appears as though he didn't stabilize while in [facility] inpatient unit. Candace explored if he appeared manic today in groups. PHP staff member expressed that she had little interaction with him but it appears as though he was presenting with delusional thoughts and noted that his work place fired him, informing him that he is delusional. Candace stated that Chandler hasn't worked there for a long period of time. [facility] staff stated that this was all triggered by an argument with his mother. Candace voiced that it sounds about right. [facility] staff member asked Candace if she could call back letting her know of the outcome but she said she would only be able to do so if he signs a release of information to speak to [facility]. PHP staff member was receptive.
[2025-02-21 16:48] VITALS: BP 112/78; PULSE 68; RESP 18; TEMP 36.9
[2025-02-21 16:49] VITALS: BMI 24.7
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
--- NOTE | 2025-02-22 10:05 | HO.PHP ---
[facility] staff member reached out to Chandler due to him stating he was leaving to go to a therapy appointment after the community meeting. Chandler had noted that he is currently struggling with schizophrenic and bipolar I symptoms. Chandler went to state that he feels he is manic but stopped at I'm feeling man. Then noted that group settings aren't a good fit for him and that he is only doing this because his mother told him he has to. When asked if he is able to engage in our program he said he is going to complete the two weeks because that is what he has to do. Chandler then expressed that he has a therapy appointment at [facility] today. I voiced to him that we discussed this yesterday and he said he was going to call yesterday or this morning to inform them that he is in our program. Chandler said he forgot he said that and noted that this is a miscommunication. Chandler then mentioned that he thought that the clinician was going to call yesterday and cancel his appointment. [facility] staff member informed him that is not something that we do. Chandler then said he was ordered to go to this therapy appointment and he can't be a no show or no call because he doesn't want to lose his therapist. PHP staff member mentioned that it wouldn't be a no show or no call if he were to call to explain he was here. Chandler said he needs structure and routine, stating he does better in one on one therapy. PHP staff member assessed for safety he reported no safety concerns but then said the only person who is telling you that I am suicidal is my mother (which I never spoke to his mother). Then he said if he ever reports suicidal thoughts it is said out of anger and he does not mean it. Chandler mentioned that he feels his friends are going to kill him but he knows that is not true because if it were, they would have done it by now. Chandler said this is stuff he needs to figure out with his friends and he just needs to speak with them. Chandler lastly stated that he is going to go to his appointment because he needs to process this information. [facility] staff member was receptive and did let him know that he is unable to return to the program for the day and we will see him tomorrow. He was in agreement.
--- NOTE | 2025-02-23 13:50 | HO.PHP ---
[facility] staff member reached out to Chandler due to him not showing to program. Chandler informed me that [facility] because [facility] is [facility] to [facility] the again due to that being what he really wants to do. [facility] staff member informed him that he hasn't completed one full day of program and has missed two days in a row. I asked him if this is something he wants to do, he said no that he would like to discharge. He stated that his mother is the one who wanted him in this program. I collected his next appointments for med management and OP therapy. PT will be discharged today.
--- NOTE | 2025-02-23 13:51 | HO.PHP ---
[facility] staff member reached out to Chandler due to him not showing to program. Chandler informed me that he is currently [facility] the [facility] because he is trying to enroll in the again due to that being what he really wants to do. [facility] staff member informed him that he hasn't completed one full day of program and has missed two days in a row. [facility] staff member asked him if this is something he wants to do, he said no that he would like to discharge. He stated that his mother is the one who wanted him in this program. [facility] staff member collected his next appointments for med management and OP therapy. Chandler will be discharged today.
== END 2025-02-22 23:59 | disposition home or self-care (01) ==
LOC: HO.PHPA 09:45
PROVIDERS: Visit Provider Psychiatry & Neurology Psychiatry
DX: F31.32 Bipolar disorder, current episode depressed, moderate (principal); F43.10 Post-traumatic stress disorder, unspecified; F84.0 Autistic disorder
CPT/HCPCS: 90791; 90853